=== PATIENT | male | born 1955 | race Caucasian/White ===

== ENCOUNTER → 2023-10-24 08:25 | Outpatient (REF) | payer MEDICARE, OTHER, SELFPAY ==
[2023-10-24 10:05] LABS: PSA, Total - Diagnostic < 0.06 ng/ml (0.0-4.0)
== END ==
LOC: REG 08:25
PROVIDERS: ATTENDING PHYSICIAN Advanced Practice Midwife; FAMILY PHYSICIAN Family Medicine; REFERRING PHYSICIAN Specialist
DX: C61 Malignant neoplasm of prostate (principal)
CPT/HCPCS: 36415; 84153

== ENCOUNTER → 2023-12-13 11:29 | Outpatient (REF) | payer MEDICARE, OTHER, SELFPAY ==
[2023-12-13 12:15] LABS: % Basophils 0.8 % (0-2); % Eosinophils 3.3 % (0-6); % Immature Granulocytes 0.2 % (0-0.5); % Lymphocytes 22.2 % (20.5-51.1); % Monocytes 11.2 % (1.7-9.3); % Neutrophils 62.3 % (42.2-75.2); Absolute Eosinophils 0.2 10^3/uL (0-0.7); Absolute Lymphocytes 1.1 10^3/uL (1.2-3.4); Absolute Monocytes 0.6 10^3/uL (0.1-0.6); Absolute Neutrophils 3.1 10^3/uL (1.4-6.5); Hematocrit 39.2 % (39.0-52.0); Hemoglobin 13.4 g/dL (13.0-18.0); Mean Corp Hgb Conc. 34.2 g/dL (33.0-37.0); Mean Corpuscular Hgb 31.7 pg (27.0-31.0); Mean Corpuscular Volume 92.7 fL (80.0-94.0); Mean Platelet Volume 9.2 fL (7.4-10.4); Nucleated Red Blood Cells % 0 % (-); Platelet Count 145 10^3/uL (130-400); Red Blood Cell Count 4.23 10^6/uL (4.70-6.10); Red Cell Dist. Width 11.9 % (11.5-14.5); White Blood Cell Count 4.9 10^3/uL (4.8-10.8)
[2023-12-13 12:43] LABS: Urine Albumin Negative (Neg - Trace); Urine Bilirubin Negative (Negative); Urine Character Clear (Clear); Urine Color Yellow; Urine Glucose Negative (Negative); Urine Ketone Negative (Negative); Urine Leukocyte Negative (Negative); Urine Nitrite Negative (Negative); Urine Occult Blood Negative (Negative); Urine Specific Gravity 1.005 (<1.030); Urine Urobilinogen Negative (Neg - 1+)
[2023-12-13 12:49] LABS: ALT (SGPT) 28 U/L (0-50); AST (SGOT) 24 U/L (17-59); Albumin 4.3 g/dl (3.5-5.0); Alkaline Phosphatase 81 U/L (38-126); Blood Urea Nitrogen 18 mg/dl (9-20); Calcium 9.2 mg/dl (8.4-10.2); Carbon Dioxide 29 mmol/L (22-30); Chloride 101 mmol/L (98-107); Glucose 95 mg/dl (70-99); HDL Cholesterol 50 mg/dl; LDL Cholesterol, Calculated 82 mg/dl; Potassium 4.7 mmol/L (3.5-5.1); Sodium 139 mmol/L (135-145); Total Cholesterol 149 mg/dl (50-199); Triglyceride 85 mg/dl (10-149); Very Low Density Lipoprotein 17 mg/dl (0-30); eGFR > 60.00
[2023-12-13 13:13] LABS: TSH Reflex To Free T4 4.12 uIU/ml (0.47-4.68)
== END ==
LOC: REG 11:29
PROVIDERS: ATTENDING PHYSICIAN Family Medicine
DX: E04.9 Nontoxic goiter, unspecified (principal); Z13.220 Encounter for screening for lipoid disorders; Z79.899 Other long term (current) drug therapy; R74.8 Abnormal levels of other serum enzymes; Z00.00 Encounter for general adult medical examination without abnormal findings
CPT/HCPCS: 36415; 80053; 80061; 81003; 84443; 85025

== ENCOUNTER → 2024-03-25 15:05 | Outpatient (REF) | payer MEDICARE, OTHER, SELFPAY ==
[2024-03-27 18:38] LABS: PSA, Ultrasensitive 0.04 ng/mL (0.00-4.00)
== END ==
LOC: REG 15:05
PROVIDERS: ATTENDING PHYSICIAN Urology; FAMILY PHYSICIAN Family Medicine; REFERRING PHYSICIAN Specialist
DX: C61 Malignant neoplasm of prostate (principal)
CPT/HCPCS: 36415; 84153

== ENCOUNTER 2024-11-08 12:03 | Emergency (ER) | payer MEDICARE, OTHER, SELFPAY ==
[2024-11-08] VITALS (15 sets, daily range): BP systolic 110–146; BP diastolic 77–92; BMI 24.4
[2024-11-08 12:44] LABS: % Basophils 0.7 % (0-2); % Eosinophils 1.6 % (0-6); % Immature Granulocytes 0.4 % (0-0.5); % Lymphocytes 7.7 % (20.5-51.1); % Monocytes 9.3 % (1.7-9.3); % Neutrophils 80.3 % (42.2-75.2); Absolute Basophils 0.1 10^3/uL (0-0.2); Absolute Eosinophils 0.1 10^3/uL (0-0.7); Absolute Lymphocytes 0.5 10^3/uL (1.2-3.4); Absolute Monocytes 0.6 10^3/uL (0.1-0.6); Absolute Neutrophils 5.5 10^3/uL (1.4-6.5); Hematocrit 39.4 % (39.0-52.0); Hemoglobin 13.1 g/dL (13.0-18.0); Mean Corp Hgb Conc. 33.2 g/dL (33.0-37.0); Mean Corpuscular Hgb 31.4 pg (27.0-31.0); Mean Corpuscular Volume 94.5 fL (80.0-94.0); Mean Platelet Volume 8.9 fL (7.4-10.4); Nucleated Red Blood Cells % 0 % (-); Platelet Count 134 10^3/uL (130-400); Red Blood Cell Count 4.17 10^6/uL (4.70-6.10); White Blood Cell Count 6.9 10^3/uL (4.8-10.8)
[2024-11-08 12:57] LABS: ALT (SGPT) 34 U/L (0-50); AST (SGOT) 41 U/L (17-59); Alkaline Phosphatase 87 U/L (38-126); Blood Urea Nitrogen 21 mg/dl (9-20); Calcium 8.9 mg/dl (8.4-10.2); Carbon Dioxide 28 mmol/L (22-30); Chloride 104 mmol/L (98-107); Estimated Creatinine Clearance 73 ml/min; Glucose 123 mg/dl (70-99); Potassium 4.3 mmol/L (3.5-5.1); Sodium 138 mmol/L (135-145); Total Bilirubin 0.5 mg/dl (0.2-1.3); Total Protein 6.5 g/dl (6.3-8.2); eGFR > 60.00
--- NOTE | 2024-11-08 12:58 | ED.GENMED ---
Addendum entered and electronically signed by Tavo Carbajal DO 11/16/24 09:11:
Procedure note
Patient underwent synchronized cardioversion with the assistance of procedural sedation.
Patient was reevaluated prior to sedation and deemed stable to proceed. No change. Patient has no history of adverse reaction to sedation. Dentition is intact without any dental implants. Gag reflex is intact. Mallampati score of 1. ASA
classification of 2. Time out was performed at 1430. End time was 1445. Patient received 50 mg of propofol at 1430. No complications of procedural sedation. Patient received 1 shock of 200 J with transient return of normal sinus rhythm.
Unfortunately patient reverted back to atrial fibrillation. No further attempts were made at cardioversion.
Original Note:
History of Present Illness
General
Chief Complaint: Heart Rate Problem
Source: patient
Time Seen by Provider: 11/08/24 12:40
History of Present Illness
History of Present Illness:
69-year-old male presents to the emergency room complaining of being in A-fib. He feels dizzy and weak when he stands up. No chest pain or shortness of breath. Patient has a history of A-fib for which she had a ablation. Patient has not been in
A-fib for 4 years so he is not taking Eliquis. When he realized he was in A-fib he took 1 dose today. He also took an extra dose of 25 mg of metoprolol today and an extra 12.5 mg yesterday. Patient's brass polisher is Dr. Abundio Young.
Past History
Past History
ED Past Medical History: Arrthythmia and Other (ASD with repair, atrial flutter with hospitalization in October, Ablation at [facility] in hospital for 6 days DC 03/10/21.)
ED Past Surgical History: Cardiac and Other (Hernia)
Social History
Tobacco: Non-smoker
Alcohol: Occasional
Drug: None
Personal:
Living: with family
Employment: Employed
Family History
Family History: Other (Noncontributory)
Phy Exam
Physical Exam
Physical Exam:
General: Awake, Alert, Oriented X3. No acute distress.
Vitals: unremarkable
Head: Atraumatic
Eyes: Pupils equal, EOMI
Throat: Airway intact, no exudates
Neck: Trachea midline
Lungs: Clear and equal b/l
Heart: Regular rate, no murmurs
Abd: Soft, Nontender, No pulsatile mass
Neuro: Nonfocal
Skin: Warm, dry, no rash
Extremities: pulses equal b/l, no edema
Scores
[id number] Score for Afib Stroke Risk
Age in Years (65=0, 65-74=1, >/=75=2): 65-74
Sex (Female=+1): Male
Congestive Heart Failure History (Yes=+1): No
Hypertension History (Yes=+1): No
Stroke/TIA/Thromboembolism History (Yes=+2): No
Vascular Disease History (Yes=+1): No
Diabetes Mellitus (Yes=+1): No
Score: 1
Anticoagulation Recommendations: Consider anticoagulation (as validated in nonvalvular fib)
Course
Orders/Labs/Results
Orders:
Orders
11/08/24
Electrocardiogram (*1) Stat
Reason for Study: Chest Pain
Comment: DONE
11/08/24 12:04
EKG [Electrocardiogram (*1)] Urgent
Reason for Study: Chest Pain
EKG- Treatment ONCE
11/08/24 12:33
Complete Blood Count/With Diff Urgent
Comprehensive Metabolic Panel Urgent
Troponin I Urgent
11/08/24 14:17
Propofol [Diprivan] 20 ml .ROUTE .STK-MED
11/08/24 14:27
EKG [Electrocardiogram (*1)] Urgent
Reason for Study: Atrial Fibrillation
11/08/24 14:28
EKG- Treatment ONCE
11/08/24 14:32
Propofol [Diprivan] 50 mg IV NOW STA
11/08/24 14:51
Propofol [Diprivan] 50 mg IV NOW STA
Abnormal Lab Results
11/08/24
12:33
RBC 4.17 L 10^6/uL
(4.70-6.10)
MCV 94.5 H fL
(80.0-94.0)
MCH 31.4 H pg
(27.0-31.0)
Absolute Lymphs (auto) 0.5 L 10^3/uL
(1.2-3.4)
Neutrophils % 80.3 H %
(42.2-75.2)
Lymphocytes % 7.7 L %
(20.5-51.1)
BUN 21 H mg/dl
(9-20)
Glucose 123 H mg/dl
(70-99)
11/08/24 12:33
11/08/24 12:33
Vital Signs
Initial and Last Documented VS:
Initial Vital Signs
Temp Pulse Resp BP Pulse Ox
97.8 F 86 16 139/87 100
11/08/24 12:12 11/08/24 12:12 11/08/24 12:12 11/08/24 12:12 11/08/24 12:12
Last Documented Vital Signs
Temp Pulse Resp BP Pulse Ox
97.9 F 107 16 141/92 100
11/08/24 15:11 11/08/24 15:30 11/08/24 15:30 11/08/24 15:15 11/08/24 15:30
MDM/Problems Addressed
Differential Diagnosis Includes:
Paroxysmal atrial fibrillation, SVT, a flutter
MDM/Problems Addressed:
Patient presents in paroxysmal A-fib. He is quite confident that it began yesterday. He is very aware when he is in A-fib. No chest pain or shortness of breath but he does feel dizzy and off balance when he walks when he is in A-fib. Case
discussed with Dr. Shamar Gloria. He feels comfortable with cardioversion as long as the patient is confident he knows when he is in and out of A-fib. Decision made to perform cardioversion. Patient tolerated procedure well. Follow-up cardiology
as an outpatient.
*Pulse Oximetry
Patient hypoxic: no
*EKG
Interpreted by ED Provider?: Yes
Heart Rate: 95
Rate: normal
Rhythm: a-fib
Interval: normal interval
Ischemia: no ischemia
*Guardian Ad Litem Interpretation
Rate: normal
Interpretation: abnormal
Rhythm: a-fib
*Critical Care Note
Total Time (30-74mins, 75-104mins- exclusive of procedures): Not Applicable
ED Attending Note
-
Portions of this chart may have been created with voice recognition software.� Occasional wrong word or��sound alike� substitutions may have occurred due to the inherent limitations of voice recognition software.
Discharge Plan
Departure
Patient Disposition: Home (Routine Discharge)
Date of Disposition: 11/08/24
Time of Disposition: 15:37
Patient with high blood pressure during this ER visit?: No
Condition: Good
Discharge Problem:
Paroxysmal A-fib
Instructions: Atrial Fibrillation (DC), Procedural Sedation, Adult ED
Prescriptions:
New
Eliquis 5 mg tablet
5 mg PO BID Qty: 60 0RF
No Action
loperamide 2 MG capsule
2 - 4 mg PO DAILYPRN PRN (Reason: Diarrhea)
alprazolam 0.25 MG tablet
0.5 mg PO HSPRN PRN (Reason: anxiety )
vitamin B complex 1 TAB tablet
1 tab PO DAILY
apixaban [Eliquis] 5 MG tablet
5 mg PO BID Qty: 60 3RF
finasteride 5 MG tablet
5 mg PO Daily
cholecalciferol (vitamin D3) [Vitamin D3] 1,000 UNIT capsule
2,000 unit PO DAILY
metoprolol succinate 25 MG tablet extended release 24 hr
25 mg PO BID Qty: 60 0RF
gabapentin 300 MG capsule
300 mg PO TID
acetaminophen [Tylenol Extra Strength] 500 MG tablet
1,000 mg PO Q6HPRN PRN (Reason: pain)
hydrocodone-acetaminophen 1 TABLET tablet
1 tab PO Q4HPRN PRN (Reason: severe pain) Qty: 16 0RF
cephalexin 500 mg capsule
500 mg PO Q8H 5 Days Qty: 15 0RF
Referrals:
Conrado Young MD [Active] -
Shamar Gloria MD [Family Provider] -
Activity Restrictions/Additional Instructions:
You should receive a call from the cardiology office tomorrow to schedule an appointment. Call them if you do not hear from the office. You should continue taking Eliquis for at least the next 2 weeks or until cardiology tells you to stop it.
Increase metoprolol to twice a day.
Interventions
Interventions:
*Risk Screen - Suicide Last Done: 11/08/24 12:12
*General Assessment Last Done: 11/08/24 12:24
*Neglect/Abuse Screening Last Done: 11/08/24 12:12
ED- Fall Risk Assessment Last Done: 11/08/24 12:24
*ED COVID-19 Vaccine History Last Done: 11/08/24 12:24
*Nursing Disposition Last Done: 11/08/24 15:56
ED- Cardiac Assessment Last Done: 11/08/24 12:25
ED- Pulmonary Assessment Last Done: 11/08/24 12:25
Discharge Date and Time
Discharge Date/Time: 11/08/24 16:34
Print Language: FIJIAN
[2024-11-08 13:08] LABS: Troponin I < 0.012 ng/ml
[2024-11-08] MEDS: DIPRIVAN 50 MG IV ×2 (14:30→14:32)
== END 2024-11-08 16:34 | disposition home or self-care (01) ==
LOC: EMR 12:03
PROVIDERS: EMERGENCY PHYSICIAN Emergency Medicine; FAMILY PHYSICIAN Family Medicine
DX: I48.0 Paroxysmal atrial fibrillation (principal); Z79.899 Other long term (current) drug therapy
CPT/HCPCS: 92960; 99152; 99285; 80053; 84484; 85025; 93005

== ENCOUNTER 2024-11-20 17:57 | Emergency (ER) | payer MEDICARE, OTHER, SELFPAY ==
[2024-11-20] VITALS (7 sets, daily range): BP systolic 117–159; BP diastolic 62–88
[2024-11-20] MEDS: LOPRESSOR 5 MG IV ×2 (18:23→18:47)
--- NOTE | 2024-11-20 18:26 | ED.GENMED ---
History of Present Illness
General
Chief Complaint: Heart Rate Problem
Time Seen by Provider: 11/20/24 18:07
History of Present Illness
History of Present Illness:
69-year-old male with history of atrial fibrillation on metoprolol and Eliquis coming into the emergency department for palpitations. Patient reports palpitations started earlier today. Reports that he overall felt fine today, took a 3 mile hike.
Patient has a history of A-fib, however had not been on medications for A-fib for several years. He came to the hospital 11/04 for palpitations, was found to be in A-fib, had unsuccessful cardioversion was started on metoprolol and Eliquis. He
reports being compliant with Eliquis since 11/04. Denies any chest pain, does note some neck pain. Denies any difficulty breathing. Denies fever or recent illness. Denies additional acute medical complaints
Past History
Past History
ED Past Medical History: Arrthythmia and Other (ASD with repair, atrial flutter with hospitalization in October, Ablation at [facility] in hospital for 6 days DC 03/10/21.)
ED Past Surgical History: Cardiac and Other (Hernia)
Social History
Tobacco: Non-smoker
Alcohol: Occasional
Drug: None
Personal:
Living: with family
Employment: Employed
Family History
Family History: Other (Noncontributory)
Phy Exam
Physical Exam
Physical Exam:
General: Well-appearing, no clinical signs of dehydration, nontoxic and in no acute distress
HEENT: protecting airway
Neck: appears supple
CV: Irregular irregular rhythm, tachycardic, no evidence of cyanosis
Resp: No accessory muscle use, no increased work of breathing, lungs clear to auscultation bilaterally
Abd: no distension
Extremities: No deformities, no swelling
Neuro: alert, no focal neurologic deficit
: deferred
Rectal: deferred
Psych: Normal affect
Skin: Intact
Course
Orders/Labs/Results
Orders:
Orders
11/20/24 17:58
Electrocardiogram (*1) Urgent
Reason for Study: Tachycardia
EKG- Treatment ONCE
11/20/24 18:13
Metoprolol [Lopressor] 5 mg .ROUTE .STK-MED ONE
Metoprolol [Lopressor] 5 mg IV NOW STA
11/20/24 18:18
Complete Blood Count/With Diff Urgent
Comprehensive Metabolic Panel Urgent
Magnesium Urgent
TSH Urgent
11/20/24 18:31
ECG [Electrocardiogram (*1)] Urgent
Reason for Study: Tachycardia
EKG- Treatment ONCE
11/20/24 18:33
Metoprolol [Lopressor] 50 mg PO NOW STA
11/20/24 18:45
Metoprolol [Lopressor] 5 mg IV NOW STA
11/20/24 19:05
Propofol [Diprivan] 20 ml .ROUTE .STK-MED
11/20/24 19:13
Electrocardiogram (*1) Urgent
Reason for Study: Other
Other Reason for Exam: conversion from afib to nsr
11/20/24 19:14
EKG- Treatment ONCE
Abnormal Lab Results
11/20/24
18:18
RBC 4.58 L 10^6/uL
(4.70-6.10)
MCV 95.0 H fL
(80.0-94.0)
MCH 31.2 H pg
(27.0-31.0)
MCHC 32.9 L g/dL
(33.0-37.0)
Absolute Monos (auto) 0.7 H 10^3/uL
(0.1-0.6)
Monocytes % 11.2 H %
(1.7-9.3)
BUN 23 H mg/dl
(9-20)
Glucose 207 H mg/dl
(70-99)
ALT 57 H U/L
(0-50)
TSH 4.77 H uIU/ml
(0.47-4.68)
11/20/24 18:18
11/20/24 18:18
Vital Signs
Initial and Last Documented VS:
Initial Vital Signs
Pulse Resp Pulse Ox
211 20 100
11/20/24 18:10 11/20/24 18:10 11/20/24 18:10
Last Documented Vital Signs
Pulse Resp BP Pulse Ox
73 20 117/64 100
11/20/24 19:45 11/20/24 19:45 11/20/24 19:45 11/20/24 19:15
MDM/Problems Addressed
MDM/Problems Addressed:
69-year-old male with history of A-fib presenting to the emergency department for elevated heart rate. Vital signs on arrival significant for tachycardia.
On exam, patient is resting comfortably, no acute distress. Patient is markedly tachycardic, heart rate greater than 200. Otherwise hemodynamically stable. Suspect A-fib versus a flutter with RVR. Given elevated rate, will start on IV metoprolol
and reassess heart rate. Patient reports compliance with Eliquis. Will discuss with cardiology regarding recommendations for cardioversion.
18:35 - In discussion with cardiology, notes that cardioversion can be considered if patient is uncomfortable or persistently high heart rate. Heart rate has come down to low 100s on IV metoprolol. Patient without any comfort. Will continue to
monitor and hold cardioversion at this time. Will administer oral dose of metoprolol
19:10 -patient's heart rate went back up, given additional dose of IV metoprolol. Heart rate was in the steady 120-130 range. However while consenting for cardioversion, self converted. Will plan to increase Toprol to 50 mg twice daily with plan
for outpatient cardiology follow-up.
*EKG
Interpreted by ED Provider?: Yes
EKG Intrepretation Date: 11/20/24
EKG Intrepretation Time: 18:28
Interpretation: abnormal
Comparison EKG: changes noted
Heart Rate: 214
Rate: tachycardiac
Rhythm: a-fib
[place]: normal axis
QRS Pattern: wide non-specific
Ischemia: non-specific ST changes
*Critical Care Note
Total Time (30-74mins, 75-104mins- exclusive of procedures): Not Applicable
ED Attending Note
-
Portions of this chart may have been created with voice recognition software.� Occasional wrong word or��sound alike� substitutions may have occurred due to the inherent limitations of voice recognition software.
Discharge Plan
Departure
Patient Disposition: Home (Routine Discharge)
Date of Disposition: 11/20/24
Time of Disposition: 19:38
Patient with high blood pressure during this ER visit?: No
Condition: Good
Discharge Problem:
Atrial flutter
Instructions: Atrial Fibrillation (DC), Palpitations (DC)
Prescriptions:
New
metoprolol succinate 50 mg tablet extended release 24 hr
50 mg PO BID Qty: 60 0RF
No Action
vitamin B complex 1 TAB tablet
1 tab PO DAILY
Eliquis 5 MG tablet
5 mg PO BID Qty: 60 3RF
cholecalciferol (vitamin D3) [Vitamin D3] 1,000 UNIT capsule
1,000 unit PO DAILY
alpha lipoic acid 100 mg Capsule
100 mg PO HS
ashwagandha extract 500 mg Capsule
500 mg PO BID
Total Restore
1 cap PO BID
metoprolol succinate 25 MG tablet extended release 24 hr
12.5 mg PO BID
Referrals:
Conrado Shaikh DO [Family Provider] -
Conrado Young MD [Active] -
Activity Restrictions/Additional Instructions:
You were seen in the emergency department for elevated heart rate
You were found to have atrial fibrillation with a rapid ventricular response. Your heart rate improved with metoprolol, and you converted to a sinus rhythm. Please follow-up with your charging operator. Your metoprolol was increased to 50 mg twice a
day. If you are feeling dizzy or lightheaded on the increased dose, you can drop back down to 25 mg twice daily
Please follow-up closely with your primary care physician.
Return to the emergency department for any worsening of your symptoms, or any development of chest pain, difficulty breathing, abdominal pain with persistent vomiting and inability to tolerate food or liquid by mouth (concern for dehydration),
weakness, headache or confusion, fever greater than 100.4, or any additional symptoms that are concerning to you.
Thank you for choosing [facility].
Interventions
Interventions:
*Risk Screen - Suicide Last Done: 11/20/24 18:29
*General Assessment Last Done: 11/20/24 18:29
*Neglect/Abuse Screening Last Done: 11/20/24 18:29
ED- Fall Risk Assessment Last Done: 11/20/24 18:29
*Nursing Disposition Last Done: 11/20/24 19:51
ED- Cardiac Assessment Last Done: 11/20/24 18:29
ED- Pulmonary Assessment Last Done: 11/20/24 18:29
Discharge Date and Time
Discharge Date/Time: 11/20/24 19:51
Print Language: GREEK
[2024-11-20 18:28] LABS: % Basophils 0.7 % (0-2); % Eosinophils 2.8 % (0-6); % Immature Granulocytes 0.3 % (0-0.5); % Monocytes 11.2 % (1.7-9.3); Absolute Eosinophils 0.2 10^3/uL (0-0.7); Absolute Lymphocytes 1.6 10^3/uL (1.2-3.4); Absolute Monocytes 0.7 10^3/uL (0.1-0.6); Absolute Neutrophils 3.4 10^3/uL (1.4-6.5); Hematocrit 43.5 % (39.0-52.0); Hemoglobin 14.3 g/dL (13.0-18.0); Mean Corp Hgb Conc. 32.9 g/dL (33.0-37.0); Mean Corpuscular Hgb 31.2 pg (27.0-31.0); Nucleated Red Blood Cells % 0 % (-); Platelet Count 164 10^3/uL (130-400); Red Blood Cell Count 4.58 10^6/uL (4.70-6.10); Red Cell Dist. Width 12.1 % (11.5-14.5); White Blood Cell Count 5.8 10^3/uL (4.8-10.8)
[2024-11-20 18:42] LABS: ALT (SGPT) 57 U/L (0-50); AST (SGOT) 51 U/L (17-59); Albumin 4.4 g/dl (3.5-5.0); Alkaline Phosphatase 111 U/L (38-126); Blood Urea Nitrogen 23 mg/dl (9-20); Carbon Dioxide 27 mmol/L (22-30); Chloride 101 mmol/L (98-107); Glucose 207 mg/dl (70-99); Potassium 3.8 mmol/L (3.5-5.1); Sodium 138 mmol/L (135-145); Total Bilirubin 0.5 mg/dl (0.2-1.3); eGFR > 60.00
[2024-11-20 19:24] LABS: TSH 4.77 uIU/ml (0.47-4.68)
== END 2024-11-20 19:51 | disposition home or self-care (01) ==
LOC: EMR 17:57
PROVIDERS: EMERGENCY PHYSICIAN Student in an Organized Health Care Education/Training Program; FAMILY PHYSICIAN Family Medicine; REFERRING PHYSICIAN Internal Medicine Cardiovascular Disease
DX: I48.92 Unspecified atrial flutter (principal); Z79.01 Long term (current) use of anticoagulants
CPT/HCPCS: 99284; 96374; 80053; 83735; 84443; 85025; 93005

== ENCOUNTER → 2024-11-24 13:45 | Outpatient (REF) | payer MEDICARE, OTHER, SELFPAY | LOC: HWRCS 13:45 | PROVIDERS: ATTENDING PHYSICIAN Physician Assistant; FAMILY PHYSICIAN Family Medicine | DX: I48.0 Paroxysmal atrial fibrillation (principal); I47.19 Other supraventricular tachycardia; Z87.74 Personal history of (corrected) congenital malformations of heart and circulatory system; R06.02 Shortness of breath | CPT/HCPCS: 93306 ==

== ENCOUNTER 2024-12-20 11:55 | Inpatient (IN) | payer MEDICARE, OTHER, SELFPAY ==
[2024-12-20] VITALS (58 sets, daily range): BP systolic 66–153; BP diastolic 35–91; BMI 24.9
[2024-12-20] MEDS: LOPRESSOR 5 MG IV (05:48)
[2024-12-20 06:11] LABS: % Basophils 0.5 % (0-2); % Eosinophils 2.7 % (0-6); % Immature Granulocytes 0.3 % (0-0.5); % Lymphocytes 27.8 % (20.5-51.1); % Monocytes 8.8 % (1.7-9.3); % Neutrophils 59.9 % (42.2-75.2); Absolute Eosinophils 0.2 10^3/uL (0-0.7); Absolute Lymphocytes 1.7 10^3/uL (1.2-3.4); Absolute Monocytes 0.6 10^3/uL (0.1-0.6); Absolute Neutrophils 3.7 10^3/uL (1.4-6.5); Hematocrit 39.3 % (39.0-52.0); Mean Corp Hgb Conc. 33.1 g/dL (33.0-37.0); Mean Corpuscular Volume 96.8 fL (80.0-94.0); Mean Platelet Volume 9.4 fL (7.4-10.4); Nucleated Red Blood Cells % 0 % (-); Platelet Count 154 10^3/uL (130-400); Red Blood Cell Count 4.06 10^6/uL (4.70-6.10); Red Cell Dist. Width 11.9 % (11.5-14.5); White Blood Cell Count 6.3 10^3/uL (4.8-10.8)
[2024-12-20 06:15] LABS: Blood Urea Nitrogen 25 mg/dl (9-20); Carbon Dioxide 25 mmol/L (22-30); Chloride 108 mmol/L (98-107); Glucose 160 mg/dl (70-99); Sodium 140 mmol/L (135-145); eGFR > 60.00
[2024-12-20 07:03] LABS: TSH 4.83 uIU/ml (0.47-4.68)
--- NOTE | 2024-12-20 07:15 | ED.GENMED ---
History of Present Illness
<Tavo Gonzales DO - Last Filed: 12/20/24 07:49>
General
Chief Complaint: Cardiac Symptoms
Source: patient and family
Exam Limitations: clinical condition
Time Seen by Provider: 12/20/24 05:59
Nursing documentation reviewed up to this point in time: agreed with
History of Present Illness
History of Present Illness:
69-year-old male presents with rapid heart rate. He took his pulse at home it was 220. He states that this came on spontaneously. Patient has been having issues with his atrial fibrillation. He is on Eliquis and has not missed a dose. He is
accompanied by family.
Past History
<Tavo Gonzales DO - Last Filed: 12/20/24 07:49>
Past History
ED Past Medical History: Arrthythmia and Other (ASD with repair, atrial flutter with hospitalization in October, Ablation at [facility] in hospital for 6 days DC 03/10/21.)
ED Past Surgical History: Cardiac and Other (Hernia)
Social History
Tobacco: Non-smoker
Alcohol: Occasional
Drug: None
Personal:
Living: with family
Employment: Employed
Family History
Family History: Other (Noncontributory)
Review of Systems
<Tavo Gonzales DO - Last Filed: 12/20/24 07:49>
Review of Systems
Allergies reviewed?: Yes
All Other Systems: ROS reviewed and negative except as documented in HPI and ROS
Cardiac: Reports diaphoresis and palpitations
Phy Exam
<Tavo Gonzales DO - Last Filed: 12/20/24 07:49>
General Physical Exam
General Presentation: moderate distress
General age: appears stated age
General Skin: warm and dry
General Habitus: normal
General Mental: alert
General Hydration: appears well hydrated
ENT Exam
ENT Exam: EOMI, pharynx normal, neck supple and normocephalic
Eye Exam
Eye Exam: PERRL, cornea clear and conjunctiva normal
Cardiovascular Exam
Cardiovascular Exam: irregularly irregular and tachycardia
Pulmonary Exam
Pulmonary Exam: lungs clear, no respiratory distress, no rales, no crackles, no rhonchi, no stridor, no wheezing and no cough
Gastrointestinal Exam
Gastrointestinal Exam: normal bowel sounds, non tender, soft, no organomegaly, no pulsatile mass and non distended
Neurological Exam
Neurological Exam: alert, oriented x3, no motor deficits and speech normal
Musculoskeletal Exam
Musculoskeletal Exam: full ROM and no edema
Skin Exam
Skin Exam: normal color, warm/dry, no rash and no petechia
Psychiatric Exam
Psychiatric Exam: normal mood/affect
Course
<Tavo Gonzales, DO - Last Filed: 12/20/24 07:49>
Orders/Labs/Results
Orders:
Orders
12/20/24 05:37
ECG [Electrocardiogram (*1)] Urgent
Reason for Study: Bradycardia / Tachycardia
EKG- Treatment ONCE
12/20/24 05:46
Metoprolol [Lopressor] 5 mg IV NOW STA
12/20/24 05:47
Metoprolol [Lopressor] 5 mg .ROUTE .STK-MED ONE
12/20/24 05:50
Basic Metabolic Panel Urgent
Complete Blood Count/With Diff Urgent
TSH Urgent
Comment: ADDED
12/20/24 05:53
Add On- LAB Urgent
Tests Added?: TSH, Mag
12/20/24 05:54
Propofol [Diprivan] 20 ml .ROUTE .STK-MED
12/20/24 06:16
EKG [Electrocardiogram (*1)] Urgent
Reason for Study: Atrial Fibrillation
12/20/24 06:17
EKG- Treatment ONCE
12/20/24 06:39
Magnesium Routine
Comment: ORIGINAL SAMPLE WAS HEMOLYZED, MAG CANNOT BE ADDED
Potassium Routine
Comment: ADD ON
12/20/24 06:48
Add On- LAB Urgent
Tests Added?: potassium
12/20/24 08:56
EKG [Electrocardiogram (*1)] Urgent
Reason for Study: Chest Pain
12/20/24 08:57
EKG- Treatment ONCE
12/20/24 08:59
Electrocardiogram (*1) Urgent
EKG- Treatment ONCE
12/20/24 10:40
Metoprolol [Lopressor] 5 mg .ROUTE .STK-MED ONE
12/20/24 10:42
NORepinephrine 4 MG/250 ML [Levophed] 4 mg in 250 ml .ROUTE .STK-MED
Abnormal Lab Results
12/20/24
05:50
RBC 4.06 L 10^6/uL
(4.70-6.10)
MCV 96.8 H fL
(80.0-94.0)
MCH 32.0 H pg
(27.0-31.0)
Chloride 108 H mmol/L
(98-107)
BUN 25 H mg/dl
(9-20)
Glucose 160 H mg/dl
(70-99)
TSH 4.83 H uIU/ml
(0.47-4.68)
12/20/24 05:50
12/20/24 06:39
Vital Signs
Initial and Last Documented VS:
Initial Vital Signs
Pulse Resp BP
173 25 116/77
12/20/24 05:40 12/20/24 05:40 12/20/24 05:40
Last Documented Vital Signs
Temp Pulse Resp BP Pulse Ox
97.2 F 103 17 116/71 98
12/20/24 06:00 12/20/24 09:45 12/20/24 09:45 12/20/24 09:45 12/20/24 09:45
<Paresh Hatch, DO - Last Filed: 12/20/24 10:53>
Orders/Labs/Results
Orders:
Orders
12/20/24 05:37
ECG [Electrocardiogram (*1)] Urgent
Reason for Study: Bradycardia / Tachycardia
EKG- Treatment ONCE
12/20/24 05:46
Metoprolol [Lopressor] 5 mg IV NOW STA
12/20/24 05:47
Metoprolol [Lopressor] 5 mg .ROUTE .STK-MED ONE
12/20/24 05:50
Basic Metabolic Panel Urgent
Complete Blood Count/With Diff Urgent
TSH Urgent
Comment: ADDED
12/20/24 05:53
Add On- LAB Urgent
Tests Added?: TSH, Mag
12/20/24 05:54
Propofol [Diprivan] 20 ml .ROUTE .STK-MED
12/20/24 06:16
EKG [Electrocardiogram (*1)] Urgent
Reason for Study: Atrial Fibrillation
12/20/24 06:17
EKG- Treatment ONCE
12/20/24 06:39
Magnesium Routine
Comment: ORIGINAL SAMPLE WAS HEMOLYZED, MAG CANNOT BE ADDED
Potassium Routine
Comment: ADD ON
12/20/24 06:48
Add On- LAB Urgent
Tests Added?: potassium
12/20/24 08:56
EKG [Electrocardiogram (*1)] Urgent
Reason for Study: Chest Pain
12/20/24 08:57
EKG- Treatment ONCE
12/20/24 08:59
Electrocardiogram (*1) Urgent
EKG- Treatment ONCE
12/20/24 10:40
Metoprolol [Lopressor] 5 mg .ROUTE .STK-MED ONE
12/20/24 10:42
NORepinephrine 4 MG/250 ML [Levophed] 4 mg in 250 ml .ROUTE .STK-MED
Abnormal Lab Results
12/20/24
05:50
RBC 4.06 L 10^6/uL
(4.70-6.10)
MCV 96.8 H fL
(80.0-94.0)
MCH 32.0 H pg
(27.0-31.0)
Chloride 108 H mmol/L
(98-107)
BUN 25 H mg/dl
(9-20)
Glucose 160 H mg/dl
(70-99)
TSH 4.83 H uIU/ml
(0.47-4.68)
12/20/24 05:50
12/20/24 06:39
Vital Signs
Initial and Last Documented VS:
Initial Vital Signs
Pulse Resp BP
173 25 116/77
12/20/24 05:40 12/20/24 05:40 12/20/24 05:40
Last Documented Vital Signs
Temp Pulse Resp BP Pulse Ox
97.2 F 103 17 116/71 98
12/20/24 06:00 12/20/24 09:45 12/20/24 09:45 12/20/24 09:45 12/20/24 09:45
Procedures
<Tavo Gonzales, DO - Last Filed: 12/20/24 07:49>
Moderate Sedation
Moderate Sedation Start Time(when first medication is given): 06:00
Moderate Sedation Procedure End Time: 06:15
Cardioversion
Indication:: Afib
Performed by:: Myself
Energy Used: 200 joules
Number of attempts: 2
Successful?: Yes (Patient is rate controlled but still in A-fib)
ASA Risk Score: Class II
Any reaction or bad outcome to prior sedation/anesthesia?: No history of a reaction
Sedation level to be attained: minimal
Chart and allergies reviewed: Yes
Patient reassessed prior to sedation: Yes
Time out completed at (validating right patient & procedure): 06:00
History of difficult intubation: No
Airway free of obstruction: Yes
Patient has a gag reflex: Yes
Patient is able to open mouth: Yes
Patient has no dentures: Yes
Patient has no loose teeth: Yes
Medication administered by Provider during Moderate Sedation: IV Propofol (mg)
Total dose administered: 50
Time drug administered: 06:00
Start Time: 06:00
Stop Time: 06:15
<Tavo Gonzales, DO - Last Filed: 12/20/24 07:49>
*Critical Care Note
Total Time (30-74mins, 75-104mins- exclusive of procedures): 32 (Critical care statement: A total of 32 minutes of critical care time was provided for this patient. This time is separate from time utilized to perform the aforementioned documented
procedures. Aggregate critical care time includes only time during which I was engaged in work directl)
<Paresh Hatch, DO - Last Filed: 12/20/24 10:53>
*Critical Care Note
Total Time (30-74mins, 75-104mins- exclusive of procedures): 65 (Critical care statement: A total of 32 minutes of critical care time was provided for this patient. This time is separate from time utilized to perform the aforementioned documented
procedures. Aggregate critical care time includes only time during which I was engaged in work directl)
comment:
Critical care statement: A total of 65 minutes of critical care time was provided for this patient. This includes management of unstable vital signs, evaluation of the patient at bedside, reviewing the patient's pertinent medical records, discussion
with consultants, review of old EKGs and review of pertinent medical records. This time with separate from time utilized to perform the aforementioned documented procedures
<Tavo Gonzales, DO - Last Filed: 12/20/24 07:49>
Update Note
Update Note:
Initial EKG showed a rapid flutter versus SVT rate of 202. Patient was unstable given Lopressor.
After cardioversion, patient was A-fib with rapid ventricular response rate of 109
<Paresh Hatch, DO - Last Filed: 12/20/24 10:53>
Update Note
Update Note:
Initial EKG showed a rapid flutter versus SVT rate of 202. Patient was unstable given Lopressor.
After cardioversion, patient was A-fib with rapid ventricular response rate of 109
Update at 9 AM. Patient was about to be discharged and heart rate went up to 202, and rapid flutter versus SVT. [place] text message sent to Dr. Toro, asking him to see patient. Patient placed again on pads.
Update at 9:55 am. [place] text sent to hospitalist after seen by Dr. Toro, who requested admit to hospitalist.
Update at 10:05 AM, [place] text received from Dr. Camara he states his ETA is 1 to 2 hours for admission.
Update at 10:36 AM, patient in rapid atrial fibrillation heart rate in 200s, blood pressure 90s/70s. Discussed with Dr. Toro, recommended Lopressor 2.5 mg. Lopressor given, blood pressure improved to 125/82, heart rate improved to 117.
ED Attending Note
<Tavo Gonzales, DO - Last Filed: 12/20/24 07:49>
-
Portions of this chart may have been created with voice recognition software.� Occasional wrong word or��sound alike� substitutions may have occurred due to the inherent limitations of voice recognition software.
Discharge Plan
Departure
Patient Disposition: Admit
Date of Disposition: 12/20/24
Time of Disposition: 09:54
Admit to: IVU
Presentation/result/management discussed w/ accepting MD/DO: Hospitalist
Patient with high blood pressure during this ER visit?: No
Condition: Good
Discharge Problem:
Atrial flutter, Atrial fibrillation status post cardioversion
Instructions: Cardioversion - Discharge instructions, MODERATE SEDATION ADULT
Prescriptions:
No Action
vitamin B complex 1 TAB tablet
1 tab PO DAILY
Eliquis 5 MG tablet
5 mg PO BID Qty: 60 3RF
cholecalciferol (vitamin D3) [Vitamin D3] 1,000 UNIT capsule
1,000 unit PO DAILY
alpha lipoic acid 100 mg Capsule
100 mg PO HS
ashwagandha extract 500 mg Capsule
500 mg PO BID
Total Restore
1 cap PO BID
metoprolol succinate 25 MG tablet extended release 24 hr
12.5 mg PO BID
metoprolol succinate 50 mg tablet extended release 24 hr
50 mg PO BID Qty: 60 0RF
Referrals:
Ayush Toro DO [Active] -
Joaquin Holm DO [Family Provider] -
Activity Restrictions/Additional Instructions:
It was a pleasure meeting you and taking part in your care. We hope for your continued healing and wellness.
Please read discharge instructions in their entirety. However, they are for general education and may not describe your exact diagnosis at discharge. Information on your ER visit and medical conditions were discussed with you along with appropriate
follow up information...
If indicated, please take your medications as instructed and indicated on discharge paperwork.
Please schedule a follow up appointment as directed. Call to schedule an appointment
Please return to the emergency department with ANY change in, persisting, or worsening of symptoms. If any of your symptoms do not improve, or persist, or become more severe within 6-12 hours, please return to the emergency department for further
care.
Please return to the emergency department if you develop a headache, neck pain/stiffness, fever greater than 100.4F, chest pain, shortness of breath, persistent nausea, vomiting, slurred speech, difficulty walking, numbness/tingling, weakness, signs
of infection or any other symptoms that are worrisome to you.
If you have any questions or concerns please do not hesitate to call the Hospital at or E-mail me directly at [email or web address]
Interventions
Interventions:
*Risk Screen - Suicide Last Done: 12/20/24 05:41
*General Assessment Last Done: 12/20/24 06:20
*Neglect/Abuse Screening Last Done: 12/20/24 05:41
*ED- Fall Risk Assessment Last Done: 12/20/24 06:20
*ED COVID-19 Vaccine History Last Done: 12/20/24 06:20
ED- Pulmonary Assessment Last Done: 12/20/24 05:50
ED- Cardiac Assessment Last Done: 12/20/24 05:50
Discharge Date and Time
Print Language: KYRGYZ
[2024-12-20 07:17] LABS: Magnesium 1.8 mg/dl (1.6-2.3); Potassium 4.3 mmol/L (3.5-5.1)
--- NOTE | 2024-12-20 09:41 | CON.CAR ---
Consultation
Consultation Request
Date/Time Consultation Requested: December 20, 2024
Date/Time Consultation Performed: December 20, 2024
Requesting Provider: Dr. Hatch
Performing Provider: Dr. Toro
Reason for Consultation: SVT/atrial fibrillation
Medical History
-
Chief Complaint: Palpitations
History of Present Illness:
Yogi is a pleasant 69-year-old male with past medical history significant for Grzegorz patch repair of ASD in [facility] and lung [place], paroxysmal SVT/AT status post ablation in 2018 [facility], ablation [facility] 2018, ablation [facility] with
Jose Angel 2020 for recurrent symptomatic atrial tachycardia following being intolerant to sotalol after sotalol load in January 2021. He was recently seen in the office by Ana ALDANA November 2024 following an ER visit in October 2024 for recurrent atrial
fibrillation. He spontaneously converted to sinus rhythm at that time. He remains on anticoagulation with Eliquis. His Toprol was recently reduced to 25 mg twice a day after he was seen for second opinion at [facility] with
Jose Angel. He states he was told if he had more recurrence that he would eventually need recurrent ablation.
This morning he awoke from sleep with heart rate in the 200s. He noted it on his Apple Watch. He came to the emergency room and was found to be in SVT 200. He was given IV Lopressor. He was hypotensive and cardioverted in the emergency room to
atrial fibrillation. After observation, he was preparing to leave and had another recurrence of SVT 200s. He spontaneously converted to sinus with short runs of atrial tach. Cardiology is consulted for further evaluation. He denies chest pain or
shortness of breath.
Past medical history:
Atrial flutter/atrial fibrillation, history of ablations in 2018, 2018 and 2020 at [facility].
status post Grzegorz patch repair of ASD in 1972,
Klippel-Feil syndrome
Prostate cancer status post prostatectomy 2022
Solitary kidney
Left orchiectomy
Hernia repair 2006
Prior TURP
Social History
Tobacco: Non-Smoker
Alcohol: Occasional
Drug: None
Personal: (His is Erendira Most a patient of [facility])
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
Family History
Family History: Reviewed & Not Pertinent (No premature CAD in the family.)
Allergies / Home Medications
Allergy/AdvReac Type Severity Reaction Status Date / Time
cat dander Allergy DIFFICULTY Verified 12/20/24 05:45
BREATHING
erythromycin base Allergy Rash Verified 12/20/24 05:45
mold Allergy DIFFICULTY Verified 12/20/24 05:45
BREATHING
�Medication �Instructions �Recorded �Confirmed �Type
vitamin B complex 1 tab PO DAILY Supplement 09/21/16 11/20/24 History
apixaban 5 mg tablet (Eliquis) 5 mg PO BID #60 tabs 01/04/21 11/20/24 Rx
cholecalciferol (vitamin D3) 25 1,000 unit PO DAILY Supplement 02/14/21 11/20/24 History
mcg (1,000 unit) capsule (Vitamin
D3)
Total Restore 1 cap PO BID 11/20/24 11/20/24 History
alpha lipoic acid 100 mg capsule 100 mg PO HS 11/20/24 11/20/24 History
ashwagandha extract 500 mg capsule 500 mg PO BID 11/20/24 11/20/24 History
metoprolol succinate 25 mg 12.5 mg PO BID 11/20/24 11/20/24 History
tablet,extended release 24 hr
metoprolol succinate 50 mg 50 mg PO BID #60 tabs 11/20/24 Rx
tablet,extended release 24 hr
Review of Systems
-
History Source: Patient
All other systems: Negative unless noted
Cardiac: Palpitations
Physical Exam
Vital Signs
Temp Pulse Resp BP Pulse Ox
97.2 F 103 19 121/77 99
12/20/24 06:00 12/20/24 08:30 12/20/24 08:30 12/20/24 08:30 12/20/24 08:30
Physical examination:
General: No acute distress, AAOX3
Neck: Negative JVD
Heart: Irregular irregular,, Negative S3 positive S1/S2, Negative S4, No murmur
Lungs: CTA b/l, negative wheezes/rales/rhonchi
Abd: Positive BS, NT/ND, neg rebound/rigidity/guarding
Ext: Negative cyanosis/clubbing/edema
Neuro: nonfocal
Lab Results
12/20/24 05:50
12/20/24 06:39
Impression / Plan
-
.
Primary front desk coordinator: Dr. Conrado Young
Impression:
SVT 200s, with hx of recurrent atrial flutter/atrial fibrillation
History of ablations in 2017, 2018 and 2020 at [facility].
status post Grzegorz patch repair of ASD in 1972,
Elevated TSH
Solitary kidney
Klippel-Feil syndrome
Prostate cancer status post prostatectomy 2022
Left orchiectomy
Hernia repair 2006
Prior TURP
Intolerance to Sotalol
Echo November 2024: ASD repair without evidence of shunt, EF 50 to 55%, mild MR, dilated coronary sinus with known persistent left superior vena cava, study similar to February 2021.
Plan:
He comes with recurrent SVT. He has a history of recurrent atrial flutter/fibrillation.
Continue anticoagulation with Eliquis
Discussed with electrophysiology, patient to be admitted to IVU for Tikosyn loading.
Start Tikosyn 250 mcg BID.
EKG 30 min after each dose
Monitor QTc
He will need to stay in hospital for minimum of 5 doses
Recent echo reviewed, no need to repeat at this time.
Evaluation of TSH, TFTs per primary service.
Monitor renal function in the setting of solitary kidney and Tikosyn initiation.
Discussed with family members at bedside including his Erendira Fernandez.
Discussed with the emergency room.
Data Reviewed
-
EKG: Tracing Personally Visualized and interpreted
Labs: Labs Reviewed by me
Old Records: Reviewed
[2024-12-20] MEDS: LOPRESSOR 2.5 MG IV ×3 (10:45→15:03)
--- NOTE | 2024-12-20 11:18 | HPS.HSE ---
Family Physician
-
Family Physician: Joaquin Holm
Chief Complaint
-
Tachycardia
History of Present Illness
69 y/o M with PMHx:
Grzegorz patch repair of ASD in [facility] heart and lung [place], paroxysmal SVT/AT status post ablation in 2017 [facility], ablation [facility] 2018, ablation [facility] with Dr. Walter 2020 for recurrent symptomatic atrial tachycardia following being
intolerant to sotalol after sotalol load in January 2021.
Atrial fibrillation
who presents with CC tachycardia. The patient was awoken from sleep around 3 AM due to nausea and lightheadedness. He was aware of his tachycardia. He complained of neck and bilateral arm pain. Denies any chest pain or shortness of breath.
Patient was found to be in SVT in the ER. Reports compliance with his medications.
Medical History
Past Medical History
Past Medical History: Reports Other (as per HPI)
Past Surgical History: Reports Other (N/A)
Social History
Tobacco: Non-smoker
Alcohol: Occasional
Drug: None
Family History
Family History: Not pertinent
Allergies / Home Medications
Allergies reflects when Allergies were last updated in [facility].
Home Medications with original date entered in [facility]
Allergy/Medication List:
Allergies
Allergy/AdvReac Type Severity Reaction Status Date / Time
cat dander Allergy DIFFICULTY Verified 12/20/24 05:45
BREATHING
erythromycin base Allergy Rash Verified 12/20/24 05:45
mold Allergy DIFFICULTY Verified 12/20/24 05:45
BREATHING
Home Medications
vitamin B complex 1 tab PO DAILY Supplement 09/21/16
apixaban 5 mg tablet (Eliquis) 5 mg PO BID #60 tabs 01/04/21
cholecalciferol (vitamin D3) 25 mcg (1,000 unit) capsule (Vitamin D3) 1,000 unit PO DAILY Supplement 02/14/21
Total Restore 1 cap PO BID 11/20/24
alpha lipoic acid 100 mg capsule 100 mg PO HS 11/20/24
ashwagandha extract 500 mg capsule 500 mg PO BID 11/20/24
metoprolol succinate 25 mg tablet,extended release 24 hr 12.5 mg PO BID 11/20/24
metoprolol succinate 50 mg tablet,extended release 24 hr 50 mg PO BID #60 tabs 11/20/24
Review of Systems
-
History Source: Patient
A 12 point ROS was completed and negative except as noted: Yes
Physical Exam
Vital Signs
Vital Signs
Temp Pulse Resp BP Pulse Ox
97.2 F 154 23 97/80 100
12/20/24 06:00 12/20/24 10:47 12/20/24 10:47 12/20/24 10:47 12/20/24 10:47
Physical Exam
General: Other (.)
Laboratory Results
-
12/20/24 05:50
12/20/24 06:39
Laboratory Results
Total Bilirubin Cancelled 12/20/24 05:50
AST Cancelled 12/20/24 05:50
ALT Cancelled 12/20/24 05:50
Alkaline Phosphatase Cancelled 12/20/24 05:50
Impression/Plan
-
Gen: NAD, AAOx3.
Eyes: EOMI, PERRLA, no scleral icterus.
Neck: supple.
CV: tachy, irreg/irreg, +S1/S2, no m/r/g.
Resp: CTAB, no rales, wheezes, or rhonchi.
Abd: +BS, soft, NT, ND
Skin: No rashes.
Neuro: CN 2-12 intact, non-focal.
Psych: Normal mood and affect.
Echo 11/24/24:
1. Status post ASD patch repair without evidence of shunt
2. Normal left ventricular size and wall thickness with paradoxical septal motion. Normal contractility of other LV segments, EF 50-55%
3. Mildly thickened mitral leaflets with mild mitral regurgitation and normal left atrium
4. Normal right heart with normal pulmonary artery systolic pressure
5. Dilated coronary sinus with known persistent left superior vena cava
SVT/AT/afib with RVR:
-Pertinent history includes Grzegorz patch repair of ASD in 1972 [facility] and lung [place], paroxysmal SVT/AT status post ablation in [facility], [facility], ablation [facility] with Dr. Walter 2020 for recurrent symptomatic atrial
tachycardia following being intolerant to sotalol after sotalol load in January 2021.
-initial ECG (read by me): SVT @ 202, RBBB, QRS 162ms, repolarization abnormalities I, II, V2-V6
-Patient cardioverted in the ER and was given IV Lopressor
-case discussed with Dr. Toro. Plan to initiate Tikosyn.
-cont Eliquis
FULL/Eliquis
--- NOTE | 2024-12-20 11:54 | W.CARD.TIKOS ---
Initiate Tikosyn
-
I verify that the patient has not taken any verapamil (Isoptin/Calan), ketoconazole (Nizoral), cimetidine (Tagamet), trimethoprim (Trimpex), trimethoprim/sulfamethoxazole (Bactrim), megesterol (Megace), prochlorperazine (Compazine),
hydrochlorothiazide (HCTZ), dolutegravir (Tivicay) or any Class I or Class III anti-arrhythmic within the last three days
AND
I verify that the patient has not taken amiodarone within the last THREE months, or that the patient's amiodarone plasma concentration is <0.3 mcg/mL.
Creatinine 0.9 mg/dL (0.7-1.3) 12/20/24 05:50
Does patient have a Ventricular Conduction Abnormality: No
I have assessed the baseline QTc interval (using QT for heart rate less than 60 bpm) and deemed the patient is appropriate for Dofetilide therapy. I understand that Tikosyn is contraindicated if the QTc is >440msec (500msec in patients with
ventricular conduction abnormalities).
Baseline QTc (in msec): 413
QTc interval is greater than 440msec without conduction abnormality OR greater than 500msec with a conduction abnormality, but acceptable to proceed per Cardiology attending.
Ordering Physician: Ayush Toro
--- NOTE | 2024-12-20 13:15 | PTCARENOTE ---
Received pt from ED, HR with activity 160s, at rest 110s. BP stable, monitor showing afib. Denies pain at present. Family at bedside, oriented to room, call mandel in reach.
[2024-12-20] MEDS: TIKOSYN 250 MCG PO (13:48)
[2024-12-20] MEDS: NSS 1000 IV ×2 (13:53→22:49)
[2024-12-20] MEDS: ELIQUIS 5 MG PO ×2 (14:19→19:22)
[2024-12-20] MEDS: MAGNESIUM SULFATE 102 GRAMS IV (18:29)
[2024-12-20] MEDS: LOPRESSOR 25 MG PO (19:22)
[2024-12-21] VITALS (7 sets, daily range): BP systolic 110–138; BP diastolic 55–81; BMI 25.3
[2024-12-21] MEDS: TIKOSYN 250 MCG PO ×2 (01:02→14:08)
[2024-12-21 03:37] LABS: Hematocrit 35.2 % (39.0-52.0); Mean Corp Hgb Conc. 34.1 g/dL (33.0-37.0); Mean Corpuscular Volume 93.9 fL (80.0-94.0); Mean Platelet Volume 9.3 fL (7.4-10.4); Platelet Count 132 10^3/uL (130-400); Red Blood Cell Count 3.75 10^6/uL (4.70-6.10); Red Cell Dist. Width 11.9 % (11.5-14.5); White Blood Cell Count 6.2 10^3/uL (4.8-10.8)
--- NOTE | 2024-12-21 03:37 | PTCARENOTE ---
Patient's QTc after 2nd of Tikosyn is 472. HR now in 60s afib.
[2024-12-21 03:57] LABS: Blood Urea Nitrogen 17 mg/dl (9-20); Calcium 8.4 mg/dl (8.4-10.2); Carbon Dioxide 22 mmol/L (22-30); Chloride 111 mmol/L (98-107); Estimated Creatinine Clearance 81 ml/min; Glucose 95 mg/dl (70-99); Sodium 141 mmol/L (135-145); eGFR > 60.00
--- NOTE | 2024-12-21 07:50 | W.PN.CARDCBS ---
Addendum entered and electronically signed by Conrado Young MD 12/21/24 12:39:
Patient seen, interviewed and examined by me.
Well-appearing, no acute distress
Regular rate and rhythm with normal S1 and S2, no S3 no S4. There is a grade 1/6 apical holosystolic murmur and no rubs. PMI is normally placed.
Lungs are clear to auscultation bilaterally without wheezes rales or rhonchi.
Abdomen soft nontender nondistended with normoactive bowel sounds
Extremities show trace pretibial edema bilaterally no clubbing or cyanosis.
Neurologic exam is grossly nonfocal.
He has again recurred with symptomatic atrial tachycardia after multiple ablations at [facility], most recently in 2020.
I reviewed his case over the weekend and recommended initiation of dofetilide.
On dofetilide 250 mcg twice daily he is maintaining sinus rhythm and overall feels well.
I reviewed his ECGs and although it is difficult to see atrial activity, he is in an atrial/sinus rhythm. The corrected QT interval has not significantly prolonged. QTc on today's ECG is 472 ms.
Keep magnesium between 2 and 3 and potassium between 4 and 5. Renal function is stable
Maintain dofetilide at 250 mcg twice daily.
I have discussed this with the patient. I have suggested that he return to his assistant head cashier at the [facility], Dr. Walter to have further discussion regarding either maintaining antiarrhythmic drug therapy or moving towards
another mapping and ablation. Patient tells me that he generally prefers to avoid medical therapy so he will likely lean towards another mapping and ablation procedure which I think is very reasonable. Alternatively if we gain good rhythm control
and he tolerates dofetilide this would be a very reasonable option as well.
He should maintain oral anticoagulation for atrial fibrillation/atrial tachycardia later thromboembolic risk reduction.
All of his questions have been answered.
Discussed with nursing staff.
Original Note:
Today's Communication / Plan
-
Continue Tikosyn 250 mcg Q12H
Continue Eliquis
Remains in SR.
Follow QTc on EKG
Impression / Plan
-
Primary meat trimmer: Dr. Conrado Young
Impression:
SVT 200s, with hx of recurrent atrial flutter/atrial fibrillation
Intolerance to Sotalol
h/o ablations in 2017, 2018 and 2020 at [facility]
Tikosyn loading, 1st dose 12/20/2024
s/p Grzegorz patch repair of ASD in 1972
Elevated TSH
Solitary kidney
Klippel-Feil syndrome
Prostate cancer s/p prostatectomy 2022
Left orchiectomy
Hernia repair 2006
Prior TURP
Echo 11/24/2024: EF 50 to 55%, ASD repair without evidence of shunt, mild MR, dilated coronary sinus with known persistent left superior vena cava, study similar to February 2021.
Plan:
-Presented with recurrent SVT. He has known atrial fibrillation and has had multiple prior ablations at [facility] as well as prior intolerance to sotalol.
-Spontaneously converted to SR w/ 3 second conversion pause noted overnight. Remains in SR this AM. QTc stable at 472 ms by EKG @3AM after 2nd dose of Tikosyn.
-Continue Tikosyn 250 mcg Q12H. Will remain hospitalized for 1st 5 doses.
-Continue anticoagulation with Eliquis 5mg BID.
-Recent echo 11/24/2024 showed preserved EF, stable from prior. No need to repeat at this time.
-Would consider follow up with EP at [place] to discuss possibility of repeat ablation.
-TSH elevated at 4.83, defer workup to primary service.
HPI: Yogi is a pleasant 69-year-old male with past medical history significant for Grzegorz patch repair of ASD in [facility] heart and lung [place], paroxysmal SVT/AT status post ablation in 2018 [facility], [facility], ablation [facility] [place] [facility]
with Dr. Walter 2020 for recurrent symptomatic atrial tachycardia following being intolerant to sotalol after sotalol load in January 2021. He was recently seen in the office by Ana ALDANA November 2024 following an ER visit in October 2024 for
recurrent atrial fibrillation. He spontaneously converted to sinus rhythm at that time. He remains on anticoagulation with Eliquis. His Toprol was recently reduced to 25 mg twice a day after he was seen for second opinion at [facility]
[place] with Dr. Walter. He states he was told if he had more recurrence that he would eventually need recurrent ablation. This morning he awoke from sleep with heart rate in the 200s. He noted it on his Apple Watch. He came to the emergency
room and was found to be in SVT 200. He was given IV Lopressor. He was hypotensive and cardioverted in the emergency room to atrial fibrillation. After observation, he was preparing to leave and had another recurrence of SVT 200s. He
spontaneously converted to sinus with short runs of atrial tach. Cardiology is consulted for further evaluation. He denies chest pain or shortness of breath.
Progress Note - Product Operations Associate
Subjective
Date of Service: December 21, 2024
Feeling well in SR.
Objective
Labs:
12/21/24 03:08
12/21/24 03:08
Labs
Hgb 12.0 g/dL (13.0-18.0) L 12/21/24 03:08
Hct 35.2 % (39.0-52.0) L 12/21/24 03:08
Plt Count 132 10^3/uL (130-400) 12/21/24 03:08
Sodium 141 mmol/L (135-145) 12/21/24 03:08
Potassium 4.0 mmol/L (3.5-5.1) 12/21/24 03:08
BUN 17 mg/dl (9-20) 12/21/24 03:08
Creatinine 0.9 mg/dL (0.7-1.3) 12/21/24 03:08
Glucose 95 mg/dl (70-99) 12/21/24 03:08
Vital Signs and I&O:
Vital Signs
Temp Pulse Resp BP Pulse Ox
98.4 F 66 14 110/64 94
12/21/24 03:14 12/21/24 03:30 12/21/24 03:14 12/21/24 02:51 12/21/24 03:14
Vital Signs
Temp Pulse Resp BP Pulse Ox
98.4 F 66 14 110/64 94
12/21/24 03:14 12/21/24 03:30 12/21/24 03:14 12/21/24 02:51 12/21/24 03:14
Intake & Output
12/19/24 12/20/24 12/21/24 12/22/24
06:59 06:59 06:59 06:59
Intake Total 1680 / 1680
Output Total 1100 / 1100
Balance 580 / 580
Physical Exam
Physical Exam
GEN: No distress, awake, alert, oriented x3
HEENT: supple, anicteric, mmm
LUNGS: CTA b/l, no wheezes/rales
CV: Reg, S1/S2, no murmur
EXT: No clubbing, cyanosis, or edema
NEURO: Gross non-focal
SKIN: Warm, dry, no rash
[2024-12-21] MEDS: LOPRESSOR 25 MG PO ×2 (08:18→20:19)
[2024-12-21] MEDS: ELIQUIS 5 MG PO ×2 (08:18→20:19)
[2024-12-21] MEDS: NSS 1000 IV (10:34)
--- NOTE | 2024-12-21 10:49 | PTCARENOTE ---
Assumed care ay 0700. Patient up walking in room. Difficulty seeing p waves on telemetry strip, EKG performed. EKG report sent to Dr. Young, he confirmed NSR not junctional rhythm. No change in plan, VSS, call mandel in reach
--- NOTE | 2024-12-21 12:15 | W.PN.HOSP.TC ---
Today's Communication/Plan
-
see plan
Assessment / Plan
Assessment / Plan
Gen: remains NAD, AAOx3.
Eyes: EOMI, PERRLA, no scleral icterus.
Neck: supple.
CV: RRR, +S1/S2, no m/r/g.
Resp: CTAB anteriorly, no rales, wheezes, or rhonchi.
Abd: +BS, soft, NT, ND
Skin: No rashes.
Neuro: CN 2-12 intact, non-focal.
Psych: Normal mood and affect.
Echo 11/24/24:
1. Status post ASD patch repair without evidence of shunt
2. Normal left ventricular size and wall thickness with paradoxical septal motion. Normal contractility of other LV segments, EF 50-55%
3. Mildly thickened mitral leaflets with mild mitral regurgitation and normal left atrium
4. Normal right heart with normal pulmonary artery systolic pressure
5. Dilated coronary sinus with known persistent left superior vena cava
SVT/AT/afib with RVR:
-Pertinent history includes Grzegorz patch repair of ASD in [facility] and lung [place], paroxysmal SVT/AT status post ablation in 2017 [facility], ablation [facility] 2018, ablation [facility] with Dr. Walter 2020 for recurrent symptomatic atrial
tachycardia following being intolerant to sotalol after sotalol load in January 2021.
-initial ECG (read by me): SVT @ 202, RBBB, QRS 162ms, repolarization abnormalities I, II, V2-V6
-Patient cardioverted in the ER and was given IV Lopressor
-Tikosyn started
-now converted to SR
-cont Eliquis/BB
FULL/Eliquis
Anticipated Discharge: Within 24 hours
Subjective/Interval History
-
Date of Service: December 21, 2024
Denies CP/SOB.
Objective Data
-
Labs:
Laboratory Results
12/21/24
03:08
WBC 6.2
Hgb 12.0 L
Hct 35.2 L
Plt Count 132
Sodium 141
Potassium 4.0
Chloride 111 H
Carbon Dioxide 22
BUN 17
Creatinine 0.9
Glucose 95
Calcium 8.4
Vital Signs:
Vital Signs
Temp Pulse Resp BP Pulse Ox
98.7 F 61 18 113/55 98
12/21/24 08:19 12/21/24 10:00 12/21/24 08:19 12/21/24 08:05 12/21/24 08:19
I&O
12/20/24 12/21/24 12/22/24
06:59 06:59 06:59
Intake Total 1680 / 1680
Output Total 1100 / 1100 300 / 300
Balance 580 / 580 -300 / -300
--- NOTE | 2024-12-21 13:49 | CM ---
CM following for DC planning needs.
Met w/ patient at bedside to complete initial assessment.
Pt. resides in a private, 2 story home w/ spouse. There are approximately 1-2 LEONA. Functionally, patient is indep. w/ ADLs, mobility without the use of any assisted device.
Anticipated DC plan is for home w/ no needs.
Will cont. to follow.
--- NOTE | 2024-12-21 17:02 | PTCARENOTE ---
No complaints during day,walking in room. Call mandel in reach
[2024-12-21 20:17] LABS: Hepatitis C Antibody Negative (Negative)
[2024-12-22] MEDS: TIKOSYN 250 MCG PO ×2 (01:58→12:45)
[2024-12-22 04:14] VITALS: BP 128/58
[2024-12-22 08:13] VITALS: BP 124/70
[2024-12-22] MEDS: LOPRESSOR 25 MG PO (08:19)
[2024-12-22] MEDS: ELIQUIS 5 MG PO (08:19)
--- NOTE | 2024-12-22 09:47 | PTCARENOTE ---
Assumed care. Patient walking in halls and room. NSR, VSS, denies pain. Call mandel in reach
--- NOTE | 2024-12-22 10:09 | W.PN.CARDCBS ---
Addendum entered and electronically signed by Chico Bangura MD 12/22/24 10:53:
Patient seen and examined
Sinus rhythm this morning
Low atrial voltage
Exam:
Alert and orient x 3
Nonfocal neurologically
JVP 6
Cor regular
No murmur
Lungs clear to auscultation bilaterally
No wheezing or rhonchi
Impression:
SVT 200s, with hx of recurrent atrial flutter/atrial fibrillation
Intolerance to Sotalol
h/o ablations in 2017, 2018 and 2020 at [facility]
Tikosyn loading, 1st dose 12/20/2024s/p Grzegorz patch repair of ASD in 1972
Elevated TSH
Solitary kidney
Klippel-Feil syndrome
Prostate cancer s/p prostatectomy 2022
Left orchiectomy
Hernia repair 2006
Prior TURP
Echo 11/24/2024: EF 50 to 55%, ASD repair without evidence of shunt, mild MR, dilated coronary sinus with known persistent left superior vena cava, study similar to February 2021.
Plan:
-Presented with recurrent SVT. He has known atrial fibrillation and has had multiple prior ablations at [facility] as well as prior intolerance to sotalol.
-Spontaneously converted to SR w/ 3 second conversion pause 12/20. Remains in SR/SB this AM on review of tele.
-Continue Tikosyn 250 mcg Q12H. if QTc remains stable after 5th dose, ok for DC today
-Continue anticoagulation with Eliquis 5mg BID.
-continue lopressor
-Recent echo 11/24/2024 showed preserved EF, stable from prior. No need to repeat at this time.
-Follow up with EP at [place] with Dr. Walter to discuss possibility of repeat ablation.
-TSH elevated at 4.83, defer follow up to primary service
-d/w nursing
Original Note:
Today's Communication / Plan
-
tikosyn 250mcg Q12H
if QTc remains stable by 3PM EKG, ok for DC from cardiac standpoint
continue lopressor, eliquis
patient to schedule OP follow up with Dr. Walter
Impression / Plan
-
Primary braid maker: Dr. Conrado Young
Impression:
SVT 200s, with hx of recurrent atrial flutter/atrial fibrillation
Intolerance to Sotalol
h/o ablations in 2017, 2018 and 2020 at [facility]
Tikosyn loading, 1st dose 12/20/2024
s/p Grzegorz patch repair of ASD in 1972
Elevated TSH
Solitary kidney
Klippel-Feil syndrome
Prostate cancer s/p prostatectomy 2022
Left orchiectomy
Hernia repair 2006
Prior TURP
Echo 11/24/2024: EF 50 to 55%, ASD repair without evidence of shunt, mild MR, dilated coronary sinus with known persistent left superior vena cava, study similar to February 2021.
Plan:
-Presented with recurrent SVT. He has known atrial fibrillation and has had multiple prior ablations at [facility] as well as prior intolerance to sotalol.
-Spontaneously converted to SR w/ 3 second conversion pause 12/20. Remains in SR/SB this AM on review of tele.
-Continue Tikosyn 250 mcg Q12H. if QTc remains stable after 5th dose, ok for DC today
-Continue anticoagulation with Eliquis 5mg BID.
-continue lopressor
-Recent echo 11/24/2024 showed preserved EF, stable from prior. No need to repeat at this time.
-Follow up with EP at [place] to discuss possibility of repeat ablation.
-TSH elevated at 4.83, defer follow up to primary service
-d/w nursing
HPI: Yogi is a pleasant 69-year-old male with past medical history significant for Grzegorz patch repair of ASD in 1972 [facility] heart and lung [place], paroxysmal SVT/AT status post ablation in 2018 [facility], ablation [facility], ablation [facility]
with Dr. Walter 2020 for recurrent symptomatic atrial tachycardia following being intolerant to sotalol after sotalol load in January 2021. He was recently seen in the office by Ana ALDANA November 2024 following an ER visit in October 2024 for
recurrent atrial fibrillation. He spontaneously converted to sinus rhythm at that time. He remains on anticoagulation with Eliquis. His Toprol was recently reduced to 25 mg twice a day after he was seen for second opinion at [facility]
[place] with Dr. Walter. He states he was told if he had more recurrence that he would eventually need recurrent ablation. This morning he awoke from sleep with heart rate in the 200s. He noted it on his Apple Watch. He came to the emergency
room and was found to be in SVT 200. He was given IV Lopressor. He was hypotensive and cardioverted in the emergency room to atrial fibrillation. After observation, he was preparing to leave and had another recurrence of SVT 200s. He
spontaneously converted to sinus with short runs of atrial tach. Cardiology is consulted for further evaluation. He denies chest pain or shortness of breath.
Progress Note - Bdc Manager
Subjective
Date of Service: December 22, 2024
patient reports not feeling 100%, but states feels so much better than on admission.
Objective
Labs:
12/21/24 03:08
12/21/24 03:08
Labs
Hgb 12.0 g/dL (13.0-18.0) L 12/21/24 03:08
Hct 35.2 % (39.0-52.0) L 12/21/24 03:08
Plt Count 132 10^3/uL (130-400) 12/21/24 03:08
Sodium 141 mmol/L (135-145) 12/21/24 03:08
Potassium 4.0 mmol/L (3.5-5.1) 12/21/24 03:08
BUN 17 mg/dl (9-20) 12/21/24 03:08
Creatinine 0.9 mg/dL (0.7-1.3) 12/21/24 03:08
Glucose 95 mg/dl (70-99) 12/21/24 03:08
Vital Signs and I&O:
Vital Signs
Temp Pulse Resp BP Pulse Ox
98 F 52 18 124/70 99
12/22/24 08:11 12/22/24 09:45 12/22/24 08:11 12/22/24 08:13 12/22/24 08:11
Vital Signs
Temp Pulse Resp BP Pulse Ox
98 F 52 18 124/70 99
12/22/24 08:11 12/22/24 09:45 12/22/24 08:11 12/22/24 08:13 12/22/24 08:11
Intake & Output
12/20/24 12/21/24 12/22/24 12/23/24
07:59 07:59 07:59 07:59
Intake Total 1680 / 1680
Output Total 1100 / 1100 300 / 300
Balance 580 / 580 -300 / -300
Physical Exam
Physical Exam
GEN: No distress, awake, alert, oriented x3. sitting in chair
HEENT: supple, anicteric, mmm, eomi
LUNGS: CTA B/L, no wheezes/rales
CV: Reg, S1/S2, no murmur
ABD: soft, BS+, NT/ND
EXT: No cyanosis, clubbing, edema
NEURO: Gross non-focal
SKIN: Warm, pink, dry. No rash
[2024-12-22 11:09] VITALS: BP 134/79
--- NOTE | 2024-12-22 12:58 | W.PN.HOSP.TC ---
Today's Communication/Plan
-
d/c
Assessment / Plan
Assessment / Plan
Gen: remains NAD, AAOx3.
Eyes: EOMI, PERRLA, no scleral icterus.
Neck: supple.
CV: RRR, +S1/S2, no m/r/g.
Resp: CTAB anteriorly, no rales, wheezes, or rhonchi.
Abd: +BS, soft, NT, ND
Skin: No rashes.
Neuro: CN 2-12 intact, non-focal.
Psych: Normal mood and affect.
Echo 11/24/24:
1. Status post ASD patch repair without evidence of shunt
2. Normal left ventricular size and wall thickness with paradoxical septal motion. Normal contractility of other LV segments, EF 50-55%
3. Mildly thickened mitral leaflets with mild mitral regurgitation and normal left atrium
4. Normal right heart with normal pulmonary artery systolic pressure
5. Dilated coronary sinus with known persistent left superior vena cava
SVT/AT/afib with RVR:
-Pertinent history includes Grzegorz patch repair of ASD in 1972 [facility] and lung [place], paroxysmal SVT/AT status post ablation in 2017 [facility], ablation [facility] 2018, ablation [facility] with Dr. Walter 2020 for recurrent symptomatic atrial
tachycardia following being intolerant to sotalol after sotalol load in January 2021.
-initial ECG (read by me): SVT @ 202, RBBB, QRS 162ms, repolarization abnormalities I, II, V2-V6
-Patient cardioverted in the ER and was given IV Lopressor
-Tikosyn started, continues
-now converted to SR
-cont Eliquis/BB
-Tikosyn 5th dose at 1300, ECG at 1500, then d/c as per discussion with cardiology
Family updated at bedside.
FULL/Eliquis
Total time spent on d/c = 31 min. This included today's physical exam, progress note, review of laboratory and diagnostic data, preparation of discharge documents and prescriptions, and discussions about the pt's hospital course and discharge plan
with the patient and other medical accountant involved in the patient's care.
Anticipated Discharge: Today
Subjective/Interval History
-
Date of Service: December 22, 2024
Denies chest pain or shortness of breath.
Objective Data
-
Vital Signs:
Vital Signs
Temp Pulse Resp BP Pulse Ox
97.4 F 66 18 134/79 95
12/22/24 11:10 12/22/24 12:30 12/22/24 11:10 12/22/24 11:09 12/22/24 11:10
I&O
12/21/24 12/22/24 12/23/24
06:59 06:59 06:59
Intake Total 1680 / 1680
Output Total 1100 / 1100 300 / 300
Balance 580 / 580 -300 / -300
--- NOTE | 2024-12-22 13:45 | CM ---
CM following for DC planning needs.
Plan is for DC to home today.
Met w/ patient and spouse, at bedside.
Dofetilide is in stock @ [facility], [place] and estimated co pay is 31.28$
Pt. feels well and is agreeable to DC today, offers no concerns at this time.
Plan- home, no needs.
--- NOTE | 2024-12-22 15:44 | PTCARENOTE ---
Patient discharged to home. All discharge teaching completed and patient verbalized understanding. IV and telemetry remove. Patient escorted to main lobby
--- NOTE | 2024-12-22 15:51 | W.DCSUMMARY ---
Discharge Summary
Discharge Data
Date of Admission: 12/20/24
Date of Discharge: 12/22/24
-
Pending Results: No
Hospital Course
Primary diagnoses:
Supraventricular tachycardia with h/o recurrent atrial flutter/atrial fibrillation
Secondary diagnoses:
Grzegorz patch repair of ASD in 1972 [facility] and lung [place], paroxysmal SVT/AT status post ablation in 2017 [facility], ablation [facility] 2018, ablation [facility] with Dr. Walter 2020 for recurrent symptomatic atrial tachycardia following being
intolerant to sotalol after sotalol load in January 2021.
Consultants:
Cardiology
Imaging:
None
Hospital course: 69-year-old male who presented with a chief complaint of tachycardia as outlined in the H&P done on admission. Patient was found to be in SVT with a rate of around 200. Patient was cardioverted in the ER and then was given IV
Lopressor. He was initiated on Tikosyn. He converted to sinus rhythm. He completed 5 doses of Tikosyn and was cleared for discharge by cardiology on Tikosyn and metoprolol.
Discharge Plan
-
Patient Disposition: Home (Routine Discharge)
Discharge Diagnosis/Procedures: Atrial fibrillation with a rapid ventricular response
Condition: Good
Diet: Low Cholesterol and 2 Gram Sodium
Activity: As tolerated
Driving Restrictions: As prior to admission
Bathing Restrictions: None
Referrals:
Conrado Young MD [Active] - 02/04/25 4:20 pm (You have a cardiology follow-up appointment at the [place] office. Please call with questions)
Joaquin Holm DO [Family Provider] - in less than 1 week
Additional Discharge Medication Instructions: Please call to arrange follow up with Dr. Waletr.
Prescriptions:
New
dofetilide 250 mcg Capsule
250 mcg PO Q12H Qty: 60 11RF
metoprolol tartrate 25 mg Tablet
25 mg PO BID Qty: 60 0RF
Continued
vitamin B complex 1 TAB tablet
1 tab PO DAILY
Eliquis 5 MG tablet
5 mg PO BID Qty: 60 3RF
cholecalciferol (vitamin D3) [Vitamin D3] 1,000 UNIT capsule
1,000 unit PO DAILY
alpha lipoic acid 100 mg Capsule
100 mg PO HS
Total Restore
1 cap PO BID
Discontinued
ashwagandha extract 500 mg Capsule
500 mg PO BID
metoprolol succinate 25 MG tablet extended release 24 hr
12.5 mg PO BID
metoprolol succinate 50 mg tablet extended release 24 hr
50 mg PO BID Qty: 60 0RF
Discharge Orders:
Discharge Patient (As Directed); Ordered 12/22/24
Ordered By: Hawk Camara
Care Plan Goals
Care Plan Goals:
Problem: Readiness for enhanced knowledge related to diagnosis and treatment plan
Goal: Understand your diagnosis and treatment plan needs, including medications if applicable.
Instructions: Know your diagnosis, underlying causes and treatment plan options, including medications if applicable. Consult with your health care team to learn about your diagnosis and treatment plan, including medications if applicable.
Discharge Date and Time
Print Language: SINGAPORE[place]
== END 2024-12-22 15:40 | disposition home or self-care (01) | DRG 309 ==
LOC: IVU 11:55
PROVIDERS: ADMITTING PHYSICIAN Nuclear Medicine Nuclear Cardiology; ATTENDING PHYSICIAN Internal Medicine; EMERGENCY PHYSICIAN Student in an Organized Health Care Education/Training Program; FAMILY PHYSICIAN Family Medicine
PROC: 5A2204Z Restoration of Cardiac Rhythm, Single (ICD-10-PCS; 2024-12-20)
DX: I47.10 Supraventricular tachycardia, unspecified (principal); Q26.1 Persistent left superior vena cava; I48.91 Unspecified atrial fibrillation; I48.92 Unspecified atrial flutter; Z79.01 Long term (current) use of anticoagulants; Z85.46 Personal history of malignant neoplasm of prostate; Z90.79 Acquired absence of other genital organ(s); Q76.1 Klippel-Feil syndrome; Z88.1 Allergy status to other antibiotic agents; I45.10 Unspecified right bundle-branch block
CPT/HCPCS: 80048; 83735; 84132; 84443; 85025; 85027; 86803; 92960; 93005; 96374; 96376; 99152; 99291

== ENCOUNTER → 2025-01-08 09:34 | Outpatient (REF) | payer MEDICARE, OTHER, SELFPAY | LOC: HWRAD 09:34 | PROVIDERS: ATTENDING PHYSICIAN Chiropractor; FAMILY PHYSICIAN Family Medicine | DX: M54.6 Pain in thoracic spine (principal); M53.2X7 Spinal instabilities, lumbosacral region | CPT/HCPCS: 72072; 72110 ==

== ENCOUNTER 2025-01-08 12:15 | Emergency (ER) | payer MEDICARE, OTHER, SELFPAY ==
[2025-01-08] VITALS (7 sets, daily range): BP systolic 120–132; BP diastolic 63–73; BMI 25.5
[2025-01-08 12:56] LABS: % Basophils 0.6 % (0-2); % Lymphocytes 20.8 % (20.5-51.1); % Monocytes 11.9 % (1.7-9.3); % Neutrophils 64.7 % (42.2-75.2); Absolute Eosinophils 0.1 10^3/uL (0-0.7); Absolute Monocytes 0.6 10^3/uL (0.1-0.6); Absolute Neutrophils 3.2 10^3/uL (1.4-6.5); Hematocrit 39.3 % (39.0-52.0); Hemoglobin 13.1 g/dL (13.0-18.0); Mean Corp Hgb Conc. 33.3 g/dL (33.0-37.0); Mean Corpuscular Volume 93.1 fL (80.0-94.0); Mean Platelet Volume 8.4 fL (7.4-10.4); Nucleated Red Blood Cells % 0 % (-); Platelet Count 119 10^3/uL (130-400); Red Blood Cell Count 4.22 10^6/uL (4.70-6.10)
--- NOTE | 2025-01-08 12:58 | ED.GENMED ---
History of Present Illness
General
Chief Complaint: Rectal Bleeding
Source: patient
Time Seen by Provider: 01/08/25 12:45
History of Present Illness
History of Present Illness:
69-year-old male presents to the emergency room complaining of rectal bleeding. Patient noted he has had blood with his stool but is had a bowel movement over the past several days. He denies any dizziness, lightheadedness. He does endorse pain
in the left lower quadrant. The pain is constant. It is worse with some movement. No fever or chills. Patient has been able to perform his daily activities without difficulty. Patient had a colonoscopy in September 2022 that was normal.
Past History
Past History
ED Past Medical History: Arrthythmia and Other (ASD with repair, atrial flutter with hospitalization in October, Ablation at [facility] in hospital for 6 days DC 03/10/21.)
ED Past Surgical History: Cardiac and Other (Hernia)
Social History
Tobacco: Non-smoker
Alcohol: Occasional
Drug: None
Personal:
Living: with family
Employment: Employed
Family History
Family History: Other (Noncontributory)
Phy Exam
Physical Exam
Physical Exam:
General: Awake, Alert, Oriented X3. No acute distress.
Vitals: unremarkable
Head: Atraumatic
Eyes: Pupils equal, EOMI
Throat: Airway intact, no exudates
Neck: Trachea midline
Lungs: Clear and equal b/l
Heart: Regular rate, no murmurs
Abd: Soft, moderate left lower quadrant tenderness to palpation, no pulsatile mass
Rectal: Normal stool, no masses palpated
Neuro: Nonfocal
Skin: Warm, dry, no rash
Extremities: pulses equal b/l, no edema
Course
Orders/Labs/Results
Orders:
Orders
01/08/25 12:49
Type+Screen Urgent
Complete Blood Count/With Diff Urgent
Comprehensive Metabolic Panel Urgent
PT/INR [Prothrombin Time] Urgent
PTT Urgent
01/08/25 12:57
CT Abd/pelvis W Iv Cont Urgent
Comment:
Reason For Exam: llq pain, rectal bleeding
Abnormal Lab Results
01/08/25
12:49
RBC 4.22 L 10^6/uL
(4.70-6.10)
Plt Count 119 L 10^3/uL
(130-400)
Absolute Lymphs (auto) 1.0 L 10^3/uL
(1.2-3.4)
Monocytes % 11.9 H %
(1.7-9.3)
PT 15.7 H Sec
(11.4-14.6)
BUN 24 H mg/dl
(9-20)
01/08/25 12:49
01/08/25 12:49
Vital Signs
Initial and Last Documented VS:
Initial Vital Signs
Temp Pulse Resp BP Pulse Ox
97.8 F 55 20 126/64 100
01/08/25 12:21 01/08/25 12:21 01/08/25 12:21 01/08/25 12:21 01/08/25 12:21
Last Documented Vital Signs
Temp Pulse Resp BP Pulse Ox
97.8 F 59 17 124/73 97
01/08/25 12:21 01/08/25 17:00 01/08/25 14:00 01/08/25 17:00 01/08/25 17:00
MDM/Problems Addressed
Differential Diagnosis Includes:
Internal hemorrhoids, anal fissure, lower GI bleed
MDM/Problems Addressed:
Patient presents with some blood around normal stool. Hemoglobin stable. Abdominal exam is benign. CT shows some wall thickening in the proximal jejunum which does not appear to be related to his symptoms today. This can be followed up as an
outpatient. No acute inflammatory process noted. I suspect the patient's bleeding is from an internal hemorrhoid. Given his stable hemoglobin, stable vital signs and a history which does not really seem consistent with true lower GI bleeding I
feel is stable for him to be discharged home and follow-up as an outpatient
*Radiology
Radiology exam reviewed: radiology read reviewed
*Pulse Oximetry
Patient hypoxic: no
*Critical Care Note
Total Time (30-74mins, 75-104mins- exclusive of procedures): Not Applicable
ED Attending Note
-
Portions of this chart may have been created with voice recognition software.� Occasional wrong word or��sound alike� substitutions may have occurred due to the inherent limitations of voice recognition software.
Discharge Plan
Departure
Patient Disposition: Home (Routine Discharge)
Date of Disposition: 01/08/25
Time of Disposition: 17:02
Patient with high blood pressure during this ER visit?: No
Condition: Good
Discharge Problem:
Colitis with rectal bleeding, Internal hemorrhoid
Instructions: Hemorrhoids (DC), Gastrointestinal Bleeding (DC)
Prescriptions:
No Action
vitamin B complex 1 TAB tablet
1 tab PO DAILY
Eliquis 5 MG tablet
5 mg PO BID Qty: 60 3RF
cholecalciferol (vitamin D3) [Vitamin D3] 1,000 UNIT capsule
1,000 unit PO DAILY
Total Restore
1 cap PO BID
dofetilide 250 mcg Capsule
250 mcg PO Q12H Qty: 60 11RF
metoprolol tartrate 25 mg Tablet
25 mg PO BID Qty: 60 0RF
Collagen Skin Renewal 30-833.3 mg Tablet
1 tab PO BID
ashwagandha extract 120 mg Capsule
120 mg PO DAILY
Referrals:
Samir Matias MD [Active] -
Sanaz Sherwood DO [Family Provider] -
Activity Restrictions/Additional Instructions:
Return to the emergency room if you develop maroon stool or have heavier bleeding. Call Dr. Matias's office to arrange follow-up.
Interventions
Interventions:
*Risk Screen - Suicide Last Done: 01/08/25 12:24
*General Assessment Last Done: 01/08/25 12:24
*Neglect/Abuse Screening Last Done: 01/08/25 13:00
*ED- Fall Risk Assessment Last Done: 01/08/25 13:00
*ED COVID-19 Vaccine History Last Done: 01/08/25 13:00
*Nursing Disposition Last Done: 01/08/25 17:22
XF-Tbnhir-Yikyqgbafg Assessment Last Done: 01/08/25 12:59
ED- Cardiac Assessment Last Done: 01/08/25 12:59
ED- Pulmonary Assessment Last Done: 01/08/25 12:59
Discharge Date and Time
Discharge Date/Time: 01/08/25 17:23
Print Language: MOHAWK
[2025-01-08 13:06] LABS: INR 1.22; PT 15.7 Sec (11.4-14.6)
[2025-01-08 13:07] LABS: APTT 34.3 Sec (23.4-35.0)
[2025-01-08 13:14] LABS: ALT (SGPT) 49 U/L (0-50); AST (SGOT) 28 U/L (17-59); Albumin 4.5 g/dl (3.5-5.0); Alkaline Phosphatase 82 U/L (38-126); Blood Urea Nitrogen 24 mg/dl (9-20); Calcium 8.9 mg/dl (8.4-10.2); Carbon Dioxide 29 mmol/L (22-30); Chloride 106 mmol/L (98-107); Glucose 76 mg/dl (70-99); Potassium 4.4 mmol/L (3.5-5.1); Sodium 142 mmol/L (135-145); Total Bilirubin 0.8 mg/dl (0.2-1.3); Total Protein 6.8 g/dl (6.3-8.2); eGFR > 60.00
== END 2025-01-08 17:23 | disposition home or self-care (01) ==
LOC: EMR 12:15
PROVIDERS: Emergency Medicine; EMERGENCY PHYSICIAN Emergency Medicine; FAMILY PHYSICIAN Family Medicine
DX: K52.9 Noninfective gastroenteritis and colitis, unspecified (principal); K64.8 Other hemorrhoids; K62.5 Hemorrhage of anus and rectum
CPT/HCPCS: 99285; 72072; 72110; 74177; 80053; 85025; 85610; 85730; 86850; 86900; 86901; Q9967

== ENCOUNTER → 2025-02-26 09:18 | Outpatient (REF) | payer MEDICARE, OTHER, SELFPAY ==
[2025-02-26 11:27] LABS: Urine Albumin Negative (Neg - Trace); Urine Bilirubin Negative (Negative); Urine Character Clear (Clear); Urine Color Yellow; Urine Glucose Negative (Negative); Urine Ketone Negative (Negative); Urine Leukocyte Negative (Negative); Urine Nitrite Negative (Negative); Urine Occult Blood Negative (Negative); Urine Specific Gravity 1.015 (<1.030); Urine Urobilinogen Negative (Neg - 1+)
[2025-02-26 11:39] LABS: % Basophils 0.8 % (0-2); % Eosinophils 2.9 % (0-6); % Immature Granulocytes 0.2 % (0-0.5); % Lymphocytes 20.3 % (20.5-51.1); % Monocytes 11.5 % (1.7-9.3); % Neutrophils 64.3 % (42.2-75.2); Absolute Eosinophils 0.1 10^3/uL (0-0.7); Absolute Monocytes 0.6 10^3/uL (0.1-0.6); Absolute Neutrophils 3.1 10^3/uL (1.4-6.5); Hematocrit 38.2 % (39.0-52.0); Mean Corpuscular Hgb 31.9 pg (27.0-31.0); Mean Corpuscular Volume 93.6 fL (80.0-94.0); Mean Platelet Volume 9.4 fL (7.4-10.4); Nucleated Red Blood Cells % 0 % (-); Platelet Count 144 10^3/uL (130-400); Red Blood Cell Count 4.08 10^6/uL (4.70-6.10); Red Cell Dist. Width 11.9 % (11.5-14.5); White Blood Cell Count 4.8 10^3/uL (4.8-10.8)
[2025-02-26 11:53] LABS: ALT (SGPT) 38 U/L (0-50); AST (SGOT) 24 U/L (17-59); Albumin 4.3 g/dl (3.5-5.0); Alkaline Phosphatase 67 U/L (38-126); Blood Urea Nitrogen 19 mg/dl (9-20); Calcium 9.2 mg/dl (8.4-10.2); Carbon Dioxide 26 mmol/L (22-30); Chloride 108 mmol/L (98-107); Glucose 94 mg/dl (70-99); HDL Cholesterol 44 mg/dl; LDL Cholesterol, Calculated 99 mg/dl; Potassium 4.3 mmol/L (3.5-5.1); Sodium 141 mmol/L (135-145); Total Bilirubin 0.9 mg/dl (0.2-1.3); Total Cholesterol 155 mg/dl (50-199); Total Protein 6.9 g/dl (6.3-8.2); Triglyceride 64 mg/dl (10-149); Very Low Density Lipoprotein 12 mg/dl (0-30); eGFR > 60.00
[2025-02-26 12:15] LABS: PSA, Total - Diagnostic 0.15 ng/ml (0.0-4.0); TSH 3.91 uIU/ml (0.47-4.68)
== END ==
LOC: HWLAB 09:18
PROVIDERS: ATTENDING PHYSICIAN Family Medicine; OTHER PHYSICIAN Specialist; REFERRING PHYSICIAN Urology
DX: Z85.46 Personal history of malignant neoplasm of prostate (principal); R79.89 Other specified abnormal findings of blood chemistry; Z13.0 Encounter for screening for diseases of the blood and blood-forming organs and certain disorders involving the immune mechanism; R73.09 Other abnormal glucose; Z13.220 Encounter for screening for lipoid disorders; R82.90 Unspecified abnormal findings in urine; I48.91 Unspecified atrial fibrillation
CPT/HCPCS: 36415; 80053; 80061; 81003; 84153; 84443; 85025

== ENCOUNTER → 2025-06-15 13:39 | Outpatient (REF) | payer MEDICARE, OTHER, SELFPAY ==
[2025-06-15 18:36] LABS: PSA, Total - Diagnostic 0.21 ng/ml (0.0-4.0)
== END ==
LOC: HWLAB 13:39
PROVIDERS: FAMILY PHYSICIAN Family Medicine; OTHER PHYSICIAN Specialist
DX: C61 Malignant neoplasm of prostate (principal)
CPT/HCPCS: 36415; 84153

== ENCOUNTER 2025-08-29 13:01 | Inpatient (IN) | payer MEDICARE, OTHER, SELFPAY ==
[2025-08-29] VITALS (8 sets, daily range): BP systolic 124–132; BP diastolic 71–84; BMI 24.7; BMI 24.3
--- NOTE | 2025-08-29 09:48 | ED.GENMED ---
History of Present Illness
General
Chief Complaint: Heart Rate Problem
Time Seen by Provider: 08/29/25 09:41
Nursing documentation reviewed up to this point in time: agreed with
History of Present Illness
History of Present Illness:
70-year-old male presents to the ER for treatment of atrial fibrillation. Patient has an extensive prior history of same status post multiple cardioversions and ablation. He is currently on Tikosyn. He had been in contact with his applications manager
over the past few weeks due to increasing feelings of palpitations and has been taking increased dose of metoprolol as prescribed, although was recommended to take 4 times a day and he has been taking more consistently 3 times a day. He states that
at nighttime he is feeling very tired and has some discomfort in his bilateral axillas and neck. He has no chest pain at the current time. He reports feeling more fatigue with activities. He denies paroxysmal nocturnal dyspnea, he denies
orthopnea. He denies peripheral edema. He reports that he had previously been recommended for admission for increased dosing of tikosyn.
Past History
Past History
ED Past Medical History: Arrthythmia and Other (ASD with repair, atrial flutter with hospitalization in October, Ablation at [facility] in hospital for 6 days DC 03/10/21.)
ED Past Surgical History: Cardiac and Other (Hernia)
Social History
Tobacco: Non-smoker
Alcohol: Occasional
Drug: None
Personal:
Living: with family
Employment: Employed
Family History
Family History: Other (Noncontributory)
Review of Systems
Review of Systems
Allergies reviewed?: Yes
Phy Exam
Physical Exam
Physical Exam:
Patient is awake, alert, appears in no acute distress, head is NCAT, PERRL, EOMI mucous membranes moist, conjunctiva pink, heart irregularly irregular rate and rhythm without murmurs, lungs are clear to auscultation without wheezes rales or
rhonchi, no JVD, abdomen is soft and nontender on palpation, extremities without edema, GCS is 15
Course
Orders/Labs/Results
Orders:
Orders
08/29/25 09:37
Electrocardiogram (*1) Urgent
Reason for Study: Chest Pain
EKG- Treatment ONCE
08/29/25 09:42
TSH Urgent
08/29/25 09:43
CR Chest - 2 Views Urgent
Comment:
Reason For Exam: dyspnea
08/29/25 09:52
Complete Blood Count/With Diff Urgent
Comprehensive Metabolic Panel Urgent
Magnesium Urgent
PTT Urgent
Prothrombin Time Urgent
Troponin I Urgent
08/29/25 11:07
Add On- LAB Urgent
Tests Added?: TSH
Abnormal Lab Results
08/29/25
09:52
RBC 4.31 L 10^6/uL
(4.70-6.10)
MCV 94.4 H fL
(80.0-94.0)
MCH 31.8 H pg
(27.0-31.0)
Absolute Monos (auto) 0.7 H 10^3/uL
(0.1-0.6)
Lymphocytes % 19.9 L %
(20.5-51.1)
Monocytes % 11.6 H %
(1.7-9.3)
PT 15.3 H Sec
(11.4-14.6)
BUN 21 H mg/dl
(9-20)
Glucose 117 H mg/dl
(70-99)
08/29/25 09:52
08/29/25 09:52
CBC within normal limits. Kidney function preserved. Troponin negative.
Vital Signs
Initial and Last Documented VS:
Initial Vital Signs
Temp Pulse Resp BP Pulse Ox
97.6 F 89 20 128/78 98
08/29/25 09:34 08/29/25 09:34 08/29/25 09:34 08/29/25 09:34 08/29/25 09:34
Last Documented Vital Signs
Temp Pulse Resp BP Pulse Ox
97.6 F 95 13 128/78 99
08/29/25 09:34 08/29/25 11:30 08/29/25 11:30 08/29/25 09:34 08/29/25 11:30
MDM/Problems Addressed
Differential Diagnosis Includes:
Differential diagnosis to consider but not limited to congestive heart failure, atrial flutter, electrolyte dyscrasia, anemia, along with other etiologies considered
Chronic conditions affecting care:
A-fib on long-term anticoagulation, age greater than 50, history of ASD status post repair
*Radiology
Radiology exam reviewed: preliminary read by ED provider (I independently viewed and interpreted portable chest x-ray showing hyperinflation, no gross infiltrate) and radiology read reviewed (I reviewed radiology interpretation, no acute finding)
*Pulse Oximetry
SaO2: 98
Oxygen Mode of Delivery: Room air
Patient hypoxic: no
*EKG
Interpreted by ED Provider?: Yes (I independently viewed and interpreted twelve-lead EKG showing a flutter with 2 1 block, rate 110, leftward axis, no ST elevation, this is nonspecific abnormal EKG without evidence for acute ischemia, increased rate
compared to prior from 12/22/2024)
*Can Sorter Interpretation
Rate: tachycardiac (I independently viewed and interpreted rhythm strip showing a flutter with 2-1 block, no ectopy)
*Critical Care Note
Total Time (30-74mins, 75-104mins- exclusive of procedures): Not Applicable
Data Reviewed
Review of Other/Old Records Reveals: Discharge Summary (I reviewed discharge summary from Dr. Camara dated 12/22/2024. Patient had been admitted for treatment of A-fib with RVR. I reviewed medication list at this time)
Update Note
Update Note:
I reached out to on-call applications manager, Dr. Gloria, to review patient presentation and history. He would recommend hospitalist admission for further care.
1030: I reviewed patient information with hospitalist who accepts patient for admission for further care of symptomatic atrial flutter
ED Attending Note
-
Portions of this chart may have been created with voice recognition software.� Occasional wrong word or��sound alike� substitutions may have occurred due to the inherent limitations of voice recognition software.
Discharge Plan
Departure
Patient Disposition: Admit
Date of Disposition: 08/29/25
Time of Disposition: 10:47
Presentation/result/management discussed w/ accepting MD/DO: Hospitalist
Discharge Problem:
Atrial flutter
Prescriptions:
No Action
vitamin B complex 1 TAB tablet
1 tab PO DAILY
Eliquis 5 MG tablet
5 mg PO BID Qty: 60 3RF
cholecalciferol (vitamin D3) [Vitamin D3] 1,000 UNIT capsule
1,000 unit PO DAILY
Total Restore
1 cap PO BID
dofetilide 250 mcg Capsule
250 mcg PO Q12H Qty: 60 11RF
Collagen Skin Renewal 30-833.3 mg Tablet
1 tab PO BID
ashwagandha extract 120 mg Capsule
120 mg PO DAILY
metoprolol tartrate 25 mg tablet
25 mg PO TID
Referrals:
Shamar Gloria MD [Family Provider, Family Practice]
Interventions
Interventions:
*Risk Screen - Suicide Last Done: 08/29/25 09:34
*General Assessment Last Done: 08/29/25 09:34
*Neglect/Abuse Screening Last Done: 08/29/25 09:34
*ED COVID-19 Vaccine History Last Done: 08/29/25 09:45
*ED Influenza Vaccine History Last Done: 08/29/25 09:45
[facility] Fall Risk Assessment Tool Last Done: 08/29/25 09:50
ED- Cardiac Assessment Last Done: 08/29/25 10:19
ED- Pulmonary Assessment Last Done: 08/29/25 10:19
Discharge Date and Time
Print Language: SETSWANA
[2025-08-29 10:11] LABS: Hematocrit 40.7 % (39.0-52.0); Hemoglobin 13.7 g/dL (13.0-18.0); Mean Corp Hgb Conc. 33.7 g/dL (33.0-37.0); Mean Corpuscular Volume 94.4 fL (80.0-94.0); Nucleated Red Blood Cells % 0 % (-); Platelet Count 153 10^3/uL (130-400); Red Cell Dist. Width 11.9 % (11.5-14.5)
[2025-08-29 10:13] LABS: APTT 33.0 Sec (23.4-35.0); INR 1.19; PT 15.3 Sec (11.4-14.6)
[2025-08-29 10:22] LABS: ALT (SGPT) 29 U/L (0-50); AST (SGOT) 23 U/L (17-59); Albumin 4.3 g/dl (3.5-5.0); Alkaline Phosphatase 85 U/L (38-126); Blood Urea Nitrogen 21 mg/dl (9-20); Calcium 8.8 mg/dl (8.4-10.2); Carbon Dioxide 27 mmol/L (22-30); Chloride 103 mmol/L (98-107); Estimated Creatinine Clearance 72 ml/min; Glucose 117 mg/dl (70-99); Magnesium 2.0 mg/dl (1.6-2.3); Potassium 3.9 mmol/L (3.5-5.1); Sodium 136 mmol/L (135-145); Total Protein 7.1 g/dl (6.3-8.2); eGFR > 60.00
[2025-08-29 10:33] LABS: Troponin I < 0.012 ng/ml
--- NOTE | 2025-08-29 12:46 | HPS.HSE ---
Addendum entered and electronically signed by Chen Sanabria MD 08/29/25 15:20:
I personally performed a history and physical exam of the patient and discussed management with the resident. I reviewed the resident's note and agree with the documented findings and plan of care HPI/CC.
GENERAL: well developed, well nourished, male in no apparent distress
HEENT:NC/AT--NO O2 requirements
HEART: irreg irreg
LUNGS : clear to auscultation bilaterally
ABDOM: soft, nontender, nondistended, + bowel sounds
EXT: no cyanosis, clubbing, or edema
NEUROLOGIC: grossly intact
Palpitations--patient with complex cardiac history including multiple cardiac ablations and cardioversions for atrial tachyarrhythmias--unclear if patient is having paroxysmal atrial fibrillation with periods of RVR--admitting to IVU--cardiology
consult--medication adjustment for now--patient had monitor that he just mailed in a few days ago but has not yet received the results--patient may be headache for ablation and pacemaker (his thoughts)--patient thinks psychosocial stressors could
trigger an exacerbation of this-- electrolytes within normal limits, and he denies EtOH use--check echo--continue Tikosyn, metoprolol tartrate, Eliquis
prostate cancer s/p prostatectomy - follows at [facility] - will be undergoing further imaging and possible additional radiation due to a rising PSA
Klippel-Feil syndrome- chronic; solitary kidney per chart review- reports neck/left armpit soreness, may be attributed to this condition
Code status--Full Code
DVT proph-- apixaban
Original Note:
Family Physician
-
Family Physician: Shamar Gloria
Chief Complaint
-
palpitations, fatigue
History of Present Illness
70 yo M PMH recurrrent atrial arrhythmias s/p multiple ablations and cardioversion, ASD repair in 2012, persistent LSVC presenting with palpitations, fatigue, and tachycardia.
He has experienced intermittent episodes of palpitations with tachyarrythmia that have generally lasted on the order of 20-30 minutes and self-resolved. However, this current episode of palpitations began on . He notes a HR range of 100-115
by Apple watch and it has been consistently HR 90 - 115. He reports some possible lightheadedness, and fatigue. He denies chest pain (endorses long standing soreness in left armpit and neck). He denies headache, dyspnea. He denies abdominal pain. He
denies lower extremity edema.
He reports that trigger could be psychosocial because he went a drive to [place] the day before last and then reported managing his finances with son (he says he gets stressed while doing that)
He recently completed a portable heart monitoring (results pending).
He takes dofetilide 250mg bid, metoprolol tartrate 25mg tid, and apiaxban 5mg bid, and reports excellent adherence to meds. He reports that his cardiology was suggesting to increase his medication dosages at last appointment in/around July 2025.
Social Hx: unremarkable (denies etoh, smoking, rec drugs)
drug allergies: penicillins - rash
He specifically denies hx of HTN, HLD, DM, CVA, CHF
Last echo in 12/2024: EF 50-55%
In ED, VS HR 89, BP 128/78, spO2 98%
CBC unremarkable
electrolytes unremarkable, K 3.9, Cr 1.0, glucose 117, Ca 8.8, MG 2.0
LFTs wnl
Troponin < 0.012 (negative)
TSH 3.79
EKG sinus tachycardia(draft read)
CXR no acute process
Medical History
Past Medical History
Past Medical History: Reports Arrhythmia (atrial flutter, SVT, IVCD, PAC, PVCs) and Other (prostate cancer, single kidney, BPH, klippel feil syndrome, syncope )
Past Surgical History: Reports Cardiac (cardioversion, ablation, asd repair), Urological (left orichiectomy, TURP, prostatectomy) and Other
Social History
Tobacco: Non-smoker
Alcohol: None
Drug: None
Personal:
Family History
Family History: Other (father, stroke)
Allergies / Home Medications
Allergies reflects when Allergies were last updated in [facility].
Home Medications with original date entered in [facility]
Allergy/Medication List:
Allergies
Allergy/AdvReac Type Severity Reaction Status Date / Time
cat dander Allergy DIFFICULTY Verified 08/29/25 09:36
BREATHING
erythromycin base Allergy Rash Verified 08/29/25 09:36
mold Allergy DIFFICULTY Verified 08/29/25 09:36
BREATHING
Home Medications
vitamin B complex 1 tab PO DAILY Supplement 09/21/16
apixaban 5 mg tablet (Eliquis) 5 mg PO BID #60 tabs 01/04/21
cholecalciferol (vitamin D3) 25 mcg (1,000 unit) capsule (Vitamin D3) 1,000 unit PO DAILY Supplement 02/14/21
Total Restore 1 cap PO BID Supplement 11/20/24
dofetilide 250 mcg capsule 250 mcg PO Q12H #60 caps 12/22/24
ascorbic acid 30 mg-collagen, hydrolyzed 833.3 mg tablet (Collagen Skin Renewal) 1 tab PO BID 01/08/25
ashwagandha extract 120 mg capsule 120 mg PO DAILY 01/08/25
metoprolol tartrate 25 mg tablet 25 mg PO TID 08/29/25
Review of Systems
-
History Source: Patient
Constitutional: Reports Fatigue
EENT: Reports No Symptoms
Respiratory: Reports No Symptoms
Cardiac: Reports Palpitations
Abdomen/GI: Reports No Symptoms
: Reports No Symptoms
Musculoskeletal: Reports No Symptoms
Neurological: Reports No Symptoms
Physical Exam
Vital Signs
Vital Signs
Temp Pulse Resp BP Pulse Ox
97.6 F 96 18 125/71 99
08/29/25 09:34 08/29/25 12:21 08/29/25 12:00 08/29/25 12:21 08/29/25 12:00
Physical Exam
General: Conversant
HEENT: NormoCephalic
Respiratory: Clear
Cardiac: Irregular Rhythm and Other (no murmurs on my exam)
GI: Soft, Non Tender, Non Distended and Normal Bowel Sounds
Musculoskeletal: No Edema
Neuro: AO x 3, No Motor Deficits and Nonfocal/grossly intact
Psych: Calm
Laboratory Results
-
08/29/25 09:52
08/29/25 09:52
Laboratory Results
PT 15.3 Sec (11.4-14.6) H 08/29/25 09:52
INR 1.19 08/29/25 09:52
APTT 33.0 Sec (23.4-35.0) 08/29/25 09:52
Total Bilirubin 0.7 mg/dl (0.2-1.3) 08/29/25 09:52
AST 23 U/L (17-59) 08/29/25 09:52
ALT 29 U/L (0-50) 08/29/25 09:52
Alkaline Phosphatase 85 U/L (38-126) 08/29/25 09:52
Troponin I < 0.012 ng/ml 08/29/25 09:52
EKG: (Draft read)
Vent. Rate : 110 BPM Atrial Rate : 110 BPM
P-R Int : 168 ms QRS Dur : 100 ms
QT Int : 360 ms P-R-T Axes : 97 -61 30 degrees
QTcB Int : 487 ms
SINUS TACHYCARDIA
INCOMPLETE RIGHT BUNDLE BRANCH BLOCK
LEFT ANTERIOR FASCICULAR BLOCK
CXR: no acute cardiopulmonary process
Impression/Plan
-
In summary, 70 yo M PMH recurrent atrial arrhythmias s/p multiple ablations and cardioversion, ASD repair in 2013, persistent LSVC presenting with palpitations, fatigue, and tachycardia currently most concerning for atrial arrhythmia: atrial
fibrillation w/wo RVR; atrial flutter.
Palpitations
Possible atrial fibrillation with RVR, likely paroxysmal vs. atrial flutter vs. other atrial arrhythmia
PMH artrial arrhythmias s/p multiple cardioversions and ablations
- patient reports sensation of palpitations
- during my interview, pulse was irregular, and telemetry showed HR > 100 with absent (or difficult to identify) p-waves and inconsistent RR intervals -> afib with RVR
- reassuringly, hemodynamically stable and denies presyncope during encounter
- EKG during ED was tentatively draft read as sinus tach
- trigger is likely related to extensive cardioversion/ablation and ASD repair with congenital persistent LSVC which probably predisposes to arrhythmias.
- trigger could be psychosocial because he went a drive to [place] the day before last and then reported managing his finances with son (he says he gets stressed while doing that)
- Of note, his HR is 90-110s while on home dofetilide and metoprolol tartrate.
- He reports that his HR at home when not experiences the episodes of tachyarrhythmia is between 55-65.
- electrolytes within normal limits, and he denies EtOH use
Plan:
- admit to IVU
- consult cardiology
- check echocardiogram
- continue dofetilide 250mg bid
- continue metoprolol tartrate 25mg tid
- continue apixaban 5mg bid
Chronic issues:
PMH prostate cancer s/p prostatectomy
- follows at [facility]
- will be undergoing further imaging and possible additional radiation due to a rising PSA
Klippel-Feil syndrome
- chronic; solitary kidney per chart review
- reports neck/left armpit soreness, may be attributed to this condition
- monitor symptoms
Diet: regular
Full Code
DVTppx: apixaban
[2025-08-29 12:54] LABS: TSH 3.79 uIU/ml (0.47-4.68)
--- NOTE | 2025-08-29 15:20 | PTCARENOTE ---
Addendum entered by Negrita Samuels RN 08/29/25 15:42:
In addition, heart rhythm goes in and out of Afib.
Original Note:
Received the patient from the ED in a stretcher. The patient is aaox3, his vital signs are stable. Sinus tach vs aflutter 2:1 is noted on the monitor with a HR of 106. He has no complaints of pain, sob, or dizziness. I oriented him to his room. His
call mandel is within reach. His family is at the bedside.
[2025-08-29] MEDS: LOPRESSOR 25 MG PO (16:50)
--- NOTE | 2025-08-29 19:28 | CON.CAR ---
Consultation
Consultation Request
Date/Time Consultation Requested: 08/29/2025 at 1600
Date/Time Consultation Performed: 08/29/2025 at 1900
Requesting Provider: Dr. Gonzales
Performing Provider: Shamar Gloria MD
Reason for Consultation: Atrial tachycardia/paroxysmal atrial fibrillation
Medical History
-
Chief Complaint: Palpitations
History of Present Illness:
Pleasant 70-year-old man with a history of ASD repair at the [facility] in 1972, with history of SVT and atrial flutter and atrial fibrillation, has undergone ablations by Dr. Walter in 2017, 2018 and 2020. Previously on sotalol, and after recurrences
of atrial arrhythmia this year was started on dofetilide 250 mcg twice daily. Thereafter he did reasonably well but presented to our office on August 17 with increased episodes of tachycardia. A monitor revealed runs of atrial tachycardia up to
30 minutes in length. Metoprolol was uptitrated and he was continued on dofetilide. It was discussed that we could consider uptitration of dofetilide to 500 mcg twice daily. However, he had increasing palpitations and presented to the emergency
department. He is now admitted for further evaluation. Shortly after admission an electrocardiogram was obtained showing atrial fibrillation with a controlled ventricular response. He has some fatigue on metoprolol.
Past Medical History
Past Medical History: Arrhythmias (Atrial fibrillation and flutter, status post ablations 2017, 2018 and 2020 subsequently recurrences managed with sotalol and more recently dofetilide since November 2024), Hypothyroidism and Other (History of ASD
repair, persistent left superior vena cava, solitary kidney, Klippel-Feil syndrome, prostate cancer)
Past Surgical History: Urological (Left orchiectomy, prostatectomy, prior TURP) and Other (Herniorrhaphy)
Social History
Tobacco: Non-Smoker
Alcohol: None
Drug: None
Personal: (Son Nick is a nurse at [employer] [facility] and emergency department)
Living: With Family
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
Family History
Family History: Reviewed & Not Pertinent
Allergies / Home Medications
Allergy/AdvReac Type Severity Reaction Status Date / Time
cat dander Allergy DIFFICULTY Verified 08/29/25 09:36
BREATHING
erythromycin base Allergy Rash Verified 08/29/25 09:36
mold Allergy DIFFICULTY Verified 08/29/25 09:36
BREATHING
�Medication �Instructions �Recorded �Confirmed �Type
vitamin B complex 1 tab PO DAILY Supplement 09/21/16 08/29/25 History
apixaban 5 mg tablet (Eliquis) 5 mg PO BID #60 tabs 01/04/21 08/29/25 Rx
cholecalciferol (vitamin D3) 25 1,000 unit PO DAILY Supplement 02/14/21 08/29/25 History
mcg (1,000 unit) capsule (Vitamin
D3)
Total Restore 1 cap PO BID Supplement 11/20/24 08/29/25 History
dofetilide 250 mcg capsule 250 mcg PO Q12H #60 caps 12/22/24 08/29/25 Rx
ascorbic acid 30 mg-collagen, 1 tab PO BID 01/08/25 08/29/25 History
hydrolyzed 833.3 mg tablet
(Collagen Skin Renewal)
ashwagandha extract 120 mg capsule 120 mg PO DAILY 01/08/25 08/29/25 History
metoprolol tartrate 25 mg tablet 25 mg PO TID 08/29/25 08/29/25 History
Review of Systems
-
All other systems: Negative unless noted
Physical Exam
Vital Signs
Temp Pulse Resp BP Pulse Ox
36.4 C 91 16 124/71 99
08/29/25 18:46 08/29/25 18:46 08/29/25 18:46 08/29/25 14:46 08/29/25 18:46
Lab Results
08/29/25 09:52
08/29/25 09:52
Troponin I < 0.012 ng/ml 08/29/25 09:52
Physical Exam
General: No Apparent Distress
HEENT: Normocephalic
Respiratory: Clear
Cardiac: Irregular Rhythm and Other (No obvious murmurs)
GI: Non Tender and Non Distended
Musculoskeletal: No Edema
Skin: Warm and Dry
Neuro: AO x 3
Psych: Calm
Impression / Plan
-
Impression:
Paroxysmal atrial fibrillation/atrial tachycardia/atypical atrial flutter
History of ASD closure at [facility] 1972 with Grzegorz patch
Persistent left superior vena cava
Solitary right kidney
Raynaud's
Klippel-Feil
Prostatectomy for cancer
Fatigue metoprolol
Echocardiogram 11/24/2024: EF 50-55%, paradoxical septal motion, normal RV, normal left atrium with ASD repair, normal right atrium with ASD repair, mild mitral regurgitation aortic sclerosis with trace regurgitation, mild tricuspid regurgitation with
normal pulmonary artery systolic pressure, dilated coronary sinus with known persistent left superior vena cava
Plan:
He presents with episodes of atrial tachycardia, possibly atypical atrial flutter with 2-1 conduction and recurrent paroxysmal atrial fibrillation following 3 ablations most recently in 2020, now symptomatic despite dofetilide.
We will admit for uptitration of dofetilide to 500 mcg twice daily.
Better rate control might help, particularly if his underlying rhythm is atypical atrial flutter rather than atrial tachycardia. He has fatigue metoprolol, Nebivolol is nonformulary but we will try to obtain and start 20 mg daily if feasible.
Currently, he is not anticoagulated given [id number] score of 1, but in the setting of atrial fibrillation and attempts to maintain sinus rhythm, will add Eliquis.
Ultimately, patient may require additional ablations, but would be at risk for pacemaker implantation
Otherwise, no active cardiac issues at present. We will repeat his EKG.
Data Reviewed
-
EKG: Tracing Personally Visualized and interpreted (ECG #1, atrial tach with one-to-one conduction versus atypical atrial flutter with 2 1 conduction, left anterior fascicular block, incomplete right bundle branch block, QTc okay ECG #2 atrial
fibrillation with controlled ventricular response)
Radiology: Image Personally Visualized and interpreted (No active disease)
Medical Tests (Nuc Med, Echo etc): Report Reviewed by me
Labs: Labs Reviewed by me (White count 5.8, hemoglobin 13.7, BUN and creatinine 21 and 1.0, GFR greater than 60, troponin detectable)
Old Records: Reviewed
[2025-08-29] MEDS: ELIQUIS 5 MG PO (20:27)
[2025-08-29] MEDS: TIKOSYN 500 MCG PO (20:28)
[2025-08-29] MEDS: TOPROL XL 50 MG PO (20:28)
[2025-08-30] VITALS (7 sets, daily range): BP systolic 94–127; BP diastolic 64–87
[2025-08-30] MEDS: XANAX 0.25 MG PO (00:53)
--- NOTE | 2025-08-30 02:04 | PTCARENOTE ---
Received pt from day shift, ST and in/out Afib on the monitor. Pt's VSS, first increased dose of Tikosyn given around 20:30. EKG showed Sinus Tach with QTC of 522, cardiology notified and said to hold Tikosyn until they come around in the early AM
to assess the pt. Will pass on to day shift to hold until cardiology sees pt. Cardiology gave order for EKG in the AM. Around 00:45, pt rang and was feeling anxious and said he thinks he was having a 'panic attack'. 2L O2 applied and advised pt
to take deep breaths and RN would ask for order for xanax as pt has taken this in the past with relief. Pt given xanax and told to contact nursing if he was still feeling really anxious. Pt verbalized understanding and has the call mandel. Will
continue to monitor for any worsening anxiety issues.
[2025-08-30 05:07] LABS: INR 1.31; PT 16.5 Sec (11.4-14.6)
[2025-08-30 05:08] LABS: APTT 33.7 Sec (23.4-35.0)
[2025-08-30 05:27] LABS: ALT (SGPT) 26 U/L (0-50); AST (SGOT) 20 U/L (17-59); Albumin 3.9 g/dl (3.5-5.0); Alkaline Phosphatase 80 U/L (38-126); Blood Urea Nitrogen 16 mg/dl (9-20); Calcium 8.9 mg/dl (8.4-10.2); Carbon Dioxide 25 mmol/L (22-30); Chloride 108 mmol/L (98-107); Estimated Creatinine Clearance 80 ml/min; Glucose 98 mg/dl (70-99); Magnesium 2.0 mg/dl (1.6-2.3); Potassium 4.1 mmol/L (3.5-5.1); Sodium 137 mmol/L (135-145); Total Protein 6.7 g/dl (6.3-8.2); eGFR > 60.00
[2025-08-30 05:28] LABS: Hematocrit 39.7 % (39.0-52.0); Hemoglobin 13.4 g/dL (13.0-18.0); Mean Corp Hgb Conc. 33.8 g/dL (33.0-37.0); Mean Corpuscular Volume 91.3 fL (80.0-94.0); Platelet Count 157 10^3/uL (130-400); Red Cell Dist. Width 11.9 % (11.5-14.5)
--- NOTE | 2025-08-30 07:38 | W.PN.HOSP.TC ---
Today's Communication/Plan
-
- uptitration of medications per cardiology
- echocardiogram
- f/u recommendations
Assessment / Plan
Assessment / Plan
In summary, 70 yo M PMH recurrent atrial arrhythmias s/p multiple ablations and cardioversion, ASD repair in 2013, persistent LSVC presenting with palpitations, fatigue, and tachycardia currently most concerning for atrial arrhythmia: atrial
fibrillation w/wo RVR; atrial flutter.
Possible atrial fibrillation, likely paroxysmal vs. atrial flutter vs. other atrial arrhythmia
PMH atrial arrhythmias s/p multiple cardioversions and ablations
- EKG atrial fibrillation draft read; physical exam for me has irregular pulse
- HR 90-100s
- trigger is likely related to extensive cardioversion/ablation and ASD repair with congenital persistent LSVC which probably predisposes to arrhythmias.
- trigger could be psychosocial because he went a drive to [place] the day before last and then reported managing his finances with son (he says he gets stressed while doing that)
- electrolytes continue to remain within normal limits, and he denies EtOH use
Plan:
- uptitration per cardiology
- cardiology increased dofetilide 500mg bid, and metoprolol 50mg tid; contemplating changing metoprolol to nebivolol vs. ablation vs. pacemaker
- check echocardiogram
- continue apixaban 5mg bid
Chronic issues:
PMH prostate cancer s/p prostatectomy
- follows at [place]
- will be undergoing further imaging and possible additional radiation due to a rising PSA
Klippel-Feil syndrome
- chronic; solitary kidney per chart review
- reports neck/left armpit soreness, may be attributed to this condition
Diet: regular
Bowel regimen: metamucil daily
Full Code
DVTppx: apixaban
Anticipated Discharge: 24 - 48 hours
Subjective/Interval History
-
Date of Service: August 30, 2025
feels okay this morning
cardiology increased dofetilide and metoprolol
HR 90-100s, pulse still looks iregular to me
Objective Data
-
Labs:
Laboratory Results
08/30/25 08/30/25
04:46 04:47
WBC 5.8
Hgb 13.4
Hct 39.7
Plt Count 157
PT 16.5 H
INR 1.31
APTT 33.7
Sodium 137
Potassium 4.1
Chloride 108 H
Carbon Dioxide 25
BUN 16
Creatinine 0.9
Glucose 98
Calcium 8.9
Total Bilirubin 0.9
AST 20
ALT 26
Alkaline Phosphatase 80
Cr 0.9
Vital Signs:
Vital Signs
Temp Pulse Resp BP Pulse Ox
97.8 F 92 20 108/64 98
08/30/25 04:33 08/30/25 05:00 08/30/25 04:33 08/30/25 04:36 08/30/25 04:33
Review of Systems
-
History Source: Patient
Constitutional: Reports No Symptoms
EENT: Reports No Symptoms Reported
Respiratory: Reports No Symptoms
Cardiac: Reports Palpitations
Abdomen/GI: Reports No Symptoms
Genitourinary: Reports No Symptoms
Musculoskeletal: Reports No Symptoms
Neuro: Reports No Symptoms
Physical Exam
-
General: Conversant
HEENT: Normocephalic
Respiratory: Clear to Auscultation
Cardiac: Irregular Rhythm and Other (no murmurs on my exam)
GI: Soft, Nontender and Normal Bowel Sounds
Musculoskeletal: No Edema
Neuro: Awake, Alert, No Motor Deficits and Nonfocal/Grossly Intact
Psych: Calm
[2025-08-30] MEDS: TOPROL XL 50 MG PO ×2 (08:14→20:05)
[2025-08-30] MEDS: ELIQUIS 5 MG PO ×2 (08:14→20:05)
--- NOTE | 2025-08-30 08:37 | W.PN.CARDCBS ---
Addendum entered and electronically signed by Ro Baires DO 08/31/25 01:22:
I saw and examined the patient.
The [employer] note was reviewed and I agree with the note.
Comment: Patient was seen and examined sitting out of bed to chair. Offers no new complaints.
GEN: NAD. RA
HEENT: mmm
LUNGS: CTA B/L, no wheezes/rales
CV: irreg, S1/S2, 2/6 SM
EXT: No edema
NEURO: Gross non-focal
Plan:
Recurrent symptomatic atrial fibrillation on chronic Tikosyn therapy and Eliquis anticoagulation
- Admitted for uptitration of Tikosyn to 500 mcg twice daily however QTc is prolonged after 2nd dose of Tikosyn this morning. Plan discussed with patient's dental appliance repairer: Will reduce Tikosyn tonight to 250 mcg and continue QTc monitoring
through EKG protocol. If QTc is stable, will try to increase to 375 mcg twice daily 08/31
-Continue metoprolol succinate 50 mg twice daily, this was previously increased due to elevated rates in atrial fibrillation.
-2D echocardiogram with EF 50-55% with mildly reduced RV systolic function. Aortic sclerosis with trace AI, mild to moderate MR. Moderate TR with estimated pulmonary artery pressure 20 mmHg. No pericardial effusion. Patient has a dilated
coronary sinus with known persistent left SVC and a prior history of an ASD patch repair with no residual flow by color-flow Doppler.
- Plan for DC cardioversion prior to discharge if he remains in atrial fibrillation
- Follow lab work. Potassium and magnesium stable.
Addendum entered and electronically signed by Ana Angel PA-C 08/30/25 14:15:
Spoke with Dr. Del Castillo. QTc prolonged to 532 ms after 2nd dose of Tikosyn 500 mcg this AM. Will give patient 250 mcg tonight and if QTc improved in AM, will try to increase dose to 375 mcg BID starting in AM 08/31/2025.
Original Note:
Today's Communication / Plan
-
Continue higher dose Tikosyn
Continue Toprol 50mg BID
Continue Eliquis
Follow QTc.
Check echo
Impression / Plan
-
Freelance Patternmaker: Dr. Abundio Young
Impression:
Atrial flutter/atrial fibrillation
Intolerance to Sotalol
h/o ablations in 2017, 2018 and 2020 at [facility]
Chronic Tikosyn therapy
s/p Grzegorz patch repair of ASD in 1972
Solitary kidney
Klippel-Feil syndrome
Prostate cancer s/p prostatectomy 2022
Left orchiectomy
Hernia repair 2006
Prior TURP
Echo 11/24/2024: EF 50 to 55%, ASD repair without evidence of shunt, mild MR, dilated coronary sinus with known persistent left superior vena cava, study similar to February 2021.
Echo 08/30/2025: Study pending
Plan:
-Presented with episode of recurrent atrial fibrillation despite chronic Tikosyn therapy.
-Admitted for uptitration of Tikosyn to 500 mcg BID.
-Remains in afib on tele. HRs overall stable.
-QTc stable at 487 ms in AM 08/30. Continue to follow.
-Continue Toprol 50mg BID for additional rate control.
-Continue Eliquis 5mg BID for anticoagulation.
-K and mag stable. TSH within normal limits.
-Echo pending this AM. Await results.
Progress Note - Freelance Patternmaker
Subjective
Date of Service: August 30, 2025
Anxious overnight, but felt better after getting alprazolam.
Objective
Labs:
08/30/25 04:46
08/30/25 04:46
Labs
Hgb 13.4 g/dL (13.0-18.0) 08/30/25 04:46
Hct 39.7 % (39.0-52.0) 08/30/25 04:46
Plt Count 157 10^3/uL (130-400) 08/30/25 04:46
PT 16.5 Sec (11.4-14.6) H 08/30/25 04:47
INR 1.31 08/30/25 04:47
APTT 33.7 Sec (23.4-35.0) 08/30/25 04:47
Sodium 137 mmol/L (135-145) 08/30/25 04:46
Potassium 4.1 mmol/L (3.5-5.1) 08/30/25 04:46
BUN 16 mg/dl (9-20) 08/30/25 04:46
Creatinine 0.9 mg/dL (0.7-1.3) 08/30/25 04:46
Glucose 98 mg/dl (70-99) 08/30/25 04:46
Troponins
08/29/25
09:52
Troponin I < 0.012
Vital Signs and I&O:
Vital Signs
Temp Pulse Resp BP Pulse Ox
97.8 F 93 20 127/87 98
08/30/25 04:33 08/30/25 08:14 08/30/25 04:33 08/30/25 08:14 08/30/25 04:33
Vital Signs
Temp Pulse Resp BP Pulse Ox
97.8 F 93 20 127/87 98
08/30/25 04:33 08/30/25 08:14 08/30/25 04:33 08/30/25 08:14 08/30/25 04:33
Physical Exam
Physical Exam
GEN: No distress, awake, alert, oriented x3. sitting in chair
HEENT: supple, anicteric, mmm
LUNGS: CTA B/L, no wheezes/rales
CV: irreg, S1/S2, no murmur
EXT: No cyanosis, clubbing, edema
NEURO: Gross non-focal
SKIN: Warm, pink, dry. No rash
--- NOTE | 2025-08-30 08:37 | PTCARENOTE ---
Assumed care. Patient AO x3, pleasant. A-fib HR 94, VSS. Denies pain or shortness of breath. Walking to the bathroom independently, call mandel in reach
[2025-08-30] MEDS: TIKOSYN 500 MCG PO (09:28)
[2025-08-30] MEDS: METAMUCIL, KONSYL 1 PACKET PO (10:11)
--- NOTE | 2025-08-30 11:27 | CM ---
Reviewed chart. Met with Mr. Fernandez to review discharge plans. He states prior to admission he resides with his spouse in a two story home with two steps to enter. He states he has a full flight of steps tp get to bedroom/full bathroom. He states he
has a powder room on the first floor. He states prior to admission he was independent with ambulation and adls. He states he does not have any DME in the home. He states he has a prescription plan and uses [facility]. Medical work-up in
progress. The discharge plan is to return home with his spouse when medically stable.
[2025-08-30 19:26] LABS: Hepatitis C Antibody Negative (Negative)
--- NOTE | 2025-08-30 20:00 | PTCARENOTE ---
Assumed care of patient at change of shift. AAOx3, VSS. Patient denies any complaints, ambulating in room. Plan of care discussed, call mandel within reach.
[2025-08-30] MEDS: TIKOSYN 250 MCG PO (20:05)
--- NOTE | 2025-08-30 20:50 | PTCARENOTE ---
Addendum entered by Salima Hernandez RN 08/30/25 22:46:
QTc 482 (2 hours post Tikosyn)
Original Note:
Tikosyn dose #3 given at 2009, EKG ordered for 2209.
[2025-08-31 02:09] VITALS: BP 124/82
[2025-08-31 02:25] LABS: Hematocrit 39.7 % (39.0-52.0); Hemoglobin 13.5 g/dL (13.0-18.0); Mean Corp Hgb Conc. 34.0 g/dL (33.0-37.0); Mean Corpuscular Volume 91.7 fL (80.0-94.0); Platelet Count 132 10^3/uL (130-400); Red Cell Dist. Width 12.0 % (11.5-14.5)
[2025-08-31 02:44] LABS: Blood Urea Nitrogen 21 mg/dl (9-20); Calcium 9.2 mg/dl (8.4-10.2); Carbon Dioxide 27 mmol/L (22-30); Chloride 107 mmol/L (98-107); Estimated Creatinine Clearance 72 ml/min; Glucose 98 mg/dl (70-99); Potassium 4.3 mmol/L (3.5-5.1); Sodium 138 mmol/L (135-145); eGFR > 60.00
--- NOTE | 2025-08-31 07:21 | W.PN.HOSP.TC ---
Today's Communication/Plan
-
- monitor QTc
- monitor electrolytes
- adjust medications as per cardiology
- f/u cardiology recommendations
Assessment / Plan
Assessment / Plan
In summary, 70 yo M PMH recurrent atrial arrhythmias s/p multiple ablations and cardioversion, ASD repair in 2012, persistent LSVC presenting with palpitations, fatigue, and tachycardia currently most concerning for atrial arrhythmia: atrial
fibrillation w/wo RVR; atrial flutter.
Possible atrial fibrillation, likely paroxysmal vs. atrial flutter vs. other atrial arrhythmia
PMH atrial arrhythmias s/p multiple cardioversions and ablations
- HR 90-100s
- trigger is likely related to extensive cardioversion/ablation and ASD repair with congenital persistent LSVC which probably predisposes to arrhythmias.
- trigger could be psychosocial because he went a drive to [place] the day before last and then reported managing his finances with son (he says he gets stressed while doing that)
- electrolytes continue to remain within normal limits, and he denies EtOH use
- echo was largely unremarkable outside of repairs/congenital variants: EF 50-55%
Plan:
- per cardiology, uptitration of dofetilide is limited by the patient's QTc prolongation. He is currently back on dofetilide 250mg bid and metoprolol succinate 50mg bid.
- EKG to monitor QTc, per cardiology, will try dofetilide 375mg bid today
- may plan for cardioversion
- continue apixaban 5mg bid
- ensure K > 4, Mg > 2
Chronic issues:
PMH prostate cancer s/p prostatectomy
- follows at [facility]
- will be undergoing further imaging and possible additional radiation due to a rising PSA
Klippel-Feil syndrome
- chronic; solitary kidney per chart review
- reports neck/left armpit soreness, may be attributed to this condition
Diet: regular
Bowel regimen: metamucil daily
Full Code
DVTppx: apixaban
Anticipated Discharge: > 48 hours
Subjective/Interval History
-
Date of Service: August 31, 2025
feels okay
Objective Data
-
Labs:
Laboratory Results
08/31/25
02:16
WBC 6.2
Hgb 13.5
Hct 39.7
Plt Count 132
Sodium 138
Potassium 4.3
Chloride 107
Carbon Dioxide 27
BUN 21 H
Creatinine 1.0
Glucose 98
Calcium 9.2
Echocardiogram 08/30/2025
SUMMARY
1. Ejection fraction is 50-55% by visual assessment.
2. Normal left ventricular size, wall thickness and systolic function. No regional wall motion abnormalities are seen.
3. Compared to a prior transthoracic echocardiogram study from November 2024 no significant changes are seen.
4. Dilated coronary sinus with known persistent left superior vena cava.
5. Known atrial septal defect patch repair with no residual blood flow seen by color doppler.
6. Mild to moderate mitral valve regurgitation.
7. Moderate tricuspid regurgitation. Estimated pulmonary artery pressure of 28 mmHg assuming a right atrial pressure of 3 mmHg.
Vital Signs:
Vital Signs
Temp Pulse Resp BP Pulse Ox
97.7 F 105 16 124/82 99
08/31/25 02:20 08/31/25 02:20 08/31/25 02:20 08/31/25 02:09 08/31/25 02:20
HR was in 100s and then 90s this morning
I&O
08/30/25 08/31/25 09/01/25
06:59 06:59 06:59
Intake Total 120 / 120
Balance 120 / 120
Review of Systems
-
History Source: Patient
Constitutional: Reports No Symptoms
EENT: Reports No Symptoms Reported
Respiratory: Reports No Symptoms
Cardiac: Reports Palpitations
Abdomen/GI: Reports No Symptoms
Genitourinary: Reports No Symptoms
Musculoskeletal: Reports No Symptoms
Neuro: Reports No Symptoms
Physical Exam
-
General: Conversant
HEENT: Normocephalic
Respiratory: Clear to Auscultation
Cardiac: Irregular Rhythm and Other (no murmurs on my exam)
GI: Soft, Nontender and Normal Bowel Sounds
Musculoskeletal: No Edema
Neuro: Awake, Alert, No Motor Deficits and Nonfocal/Grossly Intact
Psych: Calm
[2025-08-31 07:50] VITALS: BP 121/69
[2025-08-31 08:32] LABS: Magnesium 2.0 mg/dl (1.6-2.3)
[2025-08-31] MEDS: ELIQUIS 5 MG PO ×2 (08:46→20:06)
[2025-08-31] MEDS: TOPROL XL 50 MG PO ×2 (08:46→20:06)
[2025-08-31] MEDS: METAMUCIL, KONSYL 1 PACKET PO (08:46)
[2025-08-31] MEDS: TIKOSYN 250 MCG PO ×2 (09:04→20:06)
[2025-08-31] MEDS: TIKOSYN 125 MCG PO ×2 (09:05→20:06)
--- NOTE | 2025-08-31 10:19 | CM ---
Reviewed chart. Met with Mr. Fernandez to review discharge plans. He states he is feeling well. ans. Prior to admission he resides with his spouse in a two story home with two steps to enter. He has a full flight of steps tp get to bedroom/full
bathroom. He has a powder room on the first floor. Prior to admission he was independent with ambulation and adls. He does not have any DME in the home. He has a prescription plan and uses [facility]. Medical work-up in progress. The
discharge plan is to return home with his spouse when medically stable.
--- NOTE | 2025-08-31 12:35 | PTCARENOTE ---
QTc 507. Notified Natasha Samuels. Continue with Tikosyn 375 mcg as ordered
--- NOTE | 2025-08-31 12:39 | W.PN.CARDCBS ---
Today's Communication / Plan
-
Up titration of Tikosyn for recurrent symptomatic atrial fibrillation
Post Tikosyn dose EKG/telemetry protocol
DC cardioversion 09/01 if patient remains in atrial fibrillation
Impression / Plan
-
Consumer Credit Counselor: Dr. Abundio Young
Impression:
Atrial flutter/atrial fibrillation
Intolerance to Sotalol
h/o ablations in 2017, 2018 and 2020 at [facility]
Chronic Tikosyn therapy
s/p Grzegorz patch repair of ASD in 1972
Solitary kidney
Klippel-Feil syndrome
Prostate cancer s/p prostatectomy 2022
Left orchiectomy
Hernia repair 2006
Prior TURP
Echo 11/24/2024: EF 50 to 55%, ASD repair without evidence of shunt, mild MR, dilated coronary sinus with known persistent left superior vena cava, study similar to February 2021.
Echo 08/30/2025: Study pending
Plan:
Recurrent symptomatic atrial fibrillation on chronic Tikosyn therapy and Eliquis anticoagulation
- Admitted for uptitration of Tikosyn to 500 mcg twice daily however QTc is prolonged after 2nd dose of Tikosyn this morning. Plan discussed with patient's noc analyst: Will reduce Tikosyn tonight to 250 mcg and continue QTc monitoring
through EKG protocol. If QTc is stable, will try to increase to 375 mcg twice daily 08/31
-Continue metoprolol succinate 50 mg twice daily, this was previously increased due to elevated rates in atrial fibrillation.
-2D echocardiogram with EF 50-55% with mildly reduced RV systolic function. Aortic sclerosis with trace AI, mild to moderate MR. Moderate TR with estimated pulmonary artery pressure 20 mmHg. No pericardial effusion. Patient has a dilated
coronary sinus with known persistent left SVC and a prior history of an ASD patch repair with no residual flow by color-flow Doppler.
-Lab work today: Sodium 138, Tessman 4.3, BUN/creatinine 21/1. Magnesium 2.
- Plan for DC cardioversion 09/01, if he remains in atrial fibrillation
Progress Note - Consumer Credit Counselor
Subjective
Date of Service: August 31, 2025
Patient seen and examined offering no new complaints
Objective
Labs:
08/31/25 02:16
08/31/25 02:16
Labs
Hgb 13.5 g/dL (13.0-18.0) 08/31/25 02:16
Hct 39.7 % (39.0-52.0) 08/31/25 02:16
Plt Count 132 10^3/uL (130-400) 08/31/25 02:16
PT 16.5 Sec (11.4-14.6) H 08/30/25 04:47
INR 1.31 08/30/25 04:47
APTT 33.7 Sec (23.4-35.0) 08/30/25 04:47
Sodium 138 mmol/L (135-145) 08/31/25 02:16
Potassium 4.3 mmol/L (3.5-5.1) 08/31/25 02:16
BUN 21 mg/dl (9-20) H 08/31/25 02:16
Creatinine 1.0 mg/dL (0.7-1.3) 08/31/25 02:16
Glucose 98 mg/dl (70-99) 08/31/25 02:16
Troponins
08/29/25
09:52
Troponin I < 0.012
Vital Signs and I&O:
Vital Signs
Temp Pulse Resp BP Pulse Ox
97.7 F 91 16 121/69 99
08/31/25 07:48 08/31/25 10:00 08/31/25 07:48 08/31/25 07:50 08/31/25 07:48
Vital Signs
Temp Pulse Resp BP Pulse Ox
97.7 F 91 16 121/69 99
08/31/25 07:48 08/31/25 10:00 08/31/25 07:48 08/31/25 07:50 08/31/25 07:48
Intake & Output
08/29/25 08/30/25 08/31/25 09/01/25
06:59 06:59 06:59 06:59
Intake Total 120 / 120
Balance 120 / 120
Physical Exam
Physical Exam
GEN: NAD. RA
HEENT: mmm
LUNGS: CTA B/L, no wheezes/rales
CV: irreg, S1/S2, 2/6 SM
EXT: No edema
NEURO: Gross non-focal
[2025-08-31 16:25] VITALS: BP 121/72
[2025-08-31 18:45] VITALS: BP 127/62
[2025-08-31 20:06] VITALS: BP 118/73
--- NOTE | 2025-08-31 22:21 | PTCARENOTE ---
Patient given Tikosyn dose #5 at 2009. EKG completed at 2210, QTc - 507.
[2025-09-01 03:59] VITALS: BP 99/74
[2025-09-01 04:43] LABS: Hematocrit 37.0 % (39.0-52.0); Hemoglobin 12.8 g/dL (13.0-18.0); Mean Corp Hgb Conc. 34.6 g/dL (33.0-37.0); Mean Corpuscular Volume 92.0 fL (80.0-94.0); Platelet Count 140 10^3/uL (130-400); Red Cell Dist. Width 11.8 % (11.5-14.5)
[2025-09-01 05:01] LABS: Blood Urea Nitrogen 17 mg/dl (9-20); Calcium 8.6 mg/dl (8.4-10.2); Carbon Dioxide 26 mmol/L (22-30); Chloride 106 mmol/L (98-107); Estimated Creatinine Clearance 72 ml/min; Glucose 88 mg/dl (70-99); Magnesium 2.0 mg/dl (1.6-2.3); Potassium 4.2 mmol/L (3.5-5.1); Sodium 137 mmol/L (135-145); eGFR > 60.00
[2025-09-01 07:42] VITALS: BP 107/75; BP 82/72
--- NOTE | 2025-09-01 07:47 | W.PN.HOSP.TC ---
Today's Communication/Plan
-
- possible cardioversion today
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
-
Assessment / Plan
Assessment / Plan
In summary, 70 yo M PMH recurrent atrial arrhythmias s/p multiple ablations and cardioversion, ASD repair in 2012, persistent LSVC presenting with palpitations, fatigue, and tachycardia currently most concerning for atrial arrhythmia: atrial
fibrillation w/wo RVR; atrial flutter.
Possible atrial fibrillation, likely paroxysmal vs. atrial flutter vs. other atrial arrhythmia
PMH atrial arrhythmias s/p multiple cardioversions and ablations
- HR 90-100s
- trigger is likely related to extensive cardioversion/ablation and ASD repair with congenital persistent LSVC which probably predisposes to arrhythmias.
- trigger could be psychosocial because he went a drive to [place] the day before last and then reported managing his finances with son (he says he gets stressed while doing that)
- electrolytes continue to remain within normal limits, and he denies EtOH use
- echo was largely unremarkable outside of repairs/congenital variants: EF 50-55%
Plan:
- per cardiology, dofetilide 375mg bid, metoprolol succinate 50mg bid
- EKG last QTcB 507
- per cardiology, cardioversion possibly today
- continue apixaban 5mg bid
- ensure K > 4, Mg > 2
Chronic issues:
PMH prostate cancer s/p prostatectomy
- follows at [facility]
- will be undergoing further imaging and possible additional radiation due to a rising PSA
Klippel-Feil syndrome
- chronic; solitary kidney per chart review
- reports neck/left armpit soreness, may be attributed to this condition
Diet: regular
Bowel regimen: metamucil daily
Full Code
DVTppx: apixaban
Anticipated Discharge: Within 24 hours
Subjective/Interval History
-
Date of Service: September 01, 2025
feels that he still has palpitations
Objective Data
-
Labs:
Laboratory Results
09/01/25
04:04
WBC 5.6
Hgb 12.8 L
Hct 37.0 L
Plt Count 140
Sodium 137
Potassium 4.2
Chloride 106
Carbon Dioxide 26
BUN 17
Creatinine 1.0
Glucose 88
Calcium 8.6
Cr 1.0
K 4.2
Mg 2.0
Vital Signs:
Vital Signs
Temp Pulse Resp BP Pulse Ox
97.9 F 112 20 99/74 94
09/01/25 07:44 09/01/25 04:00 09/01/25 07:44 09/01/25 03:59 09/01/25 07:44
90-110s
I&O
08/31/25 09/01/25 09/02/25
06:59 06:59 06:59
Intake Total 120 / 120
Balance 120 / 120
Review of Systems
-
History Source: Patient
Constitutional: Reports No Symptoms
EENT: Reports No Symptoms Reported
Respiratory: Reports No Symptoms
Cardiac: Reports Palpitations
Abdomen/GI: Reports No Symptoms
Genitourinary: Reports No Symptoms
Musculoskeletal: Reports No Symptoms
Neuro: Reports No Symptoms
Physical Exam
-
General: Conversant
HEENT: Normocephalic
Respiratory: Clear to Auscultation
Cardiac: Irregular Rhythm and Other (no murmurs on my exam)
GI: Soft, Nontender and Normal Bowel Sounds
Musculoskeletal: No Edema
Skin: Other (varicose veins on right leg)
Neuro: Awake, Alert, No Motor Deficits and Nonfocal/Grossly Intact
Psych: Calm
[2025-09-01] MEDS: TIKOSYN 125 MCG PO (08:49)
[2025-09-01] MEDS: TIKOSYN 250 MCG PO (08:49)
[2025-09-01] MEDS: ELIQUIS 5 MG PO (08:50)
[2025-09-01] MEDS: TOPROL XL 50 MG PO (08:50)
[2025-09-01] MEDS: METAMUCIL, KONSYL PO (08:50)
[2025-09-01] MEDS: FLUSH (NSS) 1 FLUSH IV (08:51)
--- NOTE | 2025-09-01 08:54 | W.PN.CARDCBS ---
Addendum entered and electronically signed by Chan De León MD 09/01/25 13:03:
I saw and examined the patient.
The Research Physiologist's note was reviewed and I agree with the note.
Comment: Briefly, 70-year-old man past medical history of atrial fibrillation/flutter with multiple prior ablations who is chronically on Tikosyn and presented to ER with palpitations found to be in atrial fibrillation despite Tikosyn 250 mcg
twice daily.
Tikosyn dose has been uptitrated to 375 mcg twice daily
Patient underwent successful direct-current cardioversion earlier today
QTc remains stable
Continue prior metoprolol and was dosing
Tentative plan for discharge later today with outpatient EP follow-up
Original Note:
Today's Communication / Plan
-
For cardioversion today
Follow QTc in sinus rhythm
Likely for DC later today
Outpatient EP follow-up
Impression / Plan
-
Quill Layer: Dr. Abundio Young
Impression:
Atrial flutter/atrial fibrillation
Intolerance to Sotalol
h/o ablations in 2018, 2018 and 2020 at [facility]
Chronic Tikosyn therapy
s/p Grzegorz patch repair of ASD in 1972
Solitary kidney
Klippel-Feil syndrome
Prostate cancer s/p prostatectomy 2022
Left orchiectomy
Hernia repair 2006
Prior TURP
Echo 11/24/2024: EF 50 to 55%, ASD repair without evidence of shunt, mild MR, dilated coronary sinus with known persistent left superior vena cava, study similar to February 2021.
Echo 08/30/2025: EF 50 to 55%, dilated coronary sinus with known persistent left superior vena cava, known atrial septal defect patch repair with no residual blood flow, mild to moderate MR, moderate TR, PAP 28 mmHg
Plan:
-Patient presents with recurrent symptomatic atrial fibrillation on chronic Tikosyn therapy and Eliquis
-QTc prolonged on uptitration of Tikosyn to 500 mcg twice daily, so dose reduced to 375mcg Q12H and QTc stable but remains in arrhythmia.
-plan for CV today, hopefully successful
-continue toprol 50mg BID
-Continue Eliquis 5 mg twice daily
-echo 08/30 reviewed, no significant change compared to prior
-Patient and both report component of health-related anxiety due to his arrhythmia issues. Support provided. We discussed following up with PCP, and considering options of medications, therapy.
-will arrange OP EP follow up
-likely for DC later today
-d/w patient and at bedside
Progress Note - Quill Layer
Subjective
Date of Service: September 01, 2025
Reports palpitations. No chest pain, shortness of breath
Objective
Labs:
09/01/25 04:04
09/01/25 04:04
Labs
Hgb 12.8 g/dL (13.0-18.0) L 09/01/25 04:04
Hct 37.0 % (39.0-52.0) L 09/01/25 04:04
Plt Count 140 10^3/uL (130-400) 09/01/25 04:04
PT 16.5 Sec (11.4-14.6) H 08/30/25 04:47
INR 1.31 08/30/25 04:47
APTT 33.7 Sec (23.4-35.0) 08/30/25 04:47
Sodium 137 mmol/L (135-145) 09/01/25 04:04
Potassium 4.2 mmol/L (3.5-5.1) 09/01/25 04:04
BUN 17 mg/dl (9-20) 09/01/25 04:04
Creatinine 1.0 mg/dL (0.7-1.3) 09/01/25 04:04
Glucose 88 mg/dl (70-99) 09/01/25 04:04
Troponins
08/29/25
09:52
Troponin I < 0.012
Vital Signs and I&O:
Vital Signs
Temp Pulse Resp BP Pulse Ox
97.9 F 88 20 107/ 94
09/01/25 07:44 09/01/25 08:50 09/01/25 07:44 09/01/25 08:50 09/01/25 07:44
Vital Signs
Temp Pulse Resp BP Pulse Ox
97.9 F 88 20 107/ 94
09/01/25 07:44 09/01/25 08:50 09/01/25 07:44 09/01/25 08:50 09/01/25 07:44
Intake & Output
08/30/25 08/31/25 09/01/25 09/02/25
07:59 07:59 07:59 07:59
Intake Total 120 / 120
Balance 120 / 120
Physical Exam
Physical Exam
GEN: No distress, awake, alert, oriented x3. Sitting in chair
HEENT: supple, anicteric, mmm, EOMI
LUNGS: CTA bilaterally, no wheezes/rales
CV: Irreg, S1/S2, no murmur
ABD: soft, BS+, NT/ND
EXT: No cyanosis, clubbing, edema
NEURO: Gross non-focal
SKIN: Warm, pink, dry. No rash
--- NOTE | 2025-09-01 09:18 | CM ---
Reviewed chart. Met with and Most to review discharge plans. He states he is feeling well and maybe able to go home soon. Prior to admission he resides with his spouse in a two story home with two steps to enter. He has a full flight of
steps tp get to bedroom/full bathroom. He has a powder room on the first floor. Prior to admission he was independent with ambulation and adls. He does not have any DME in the home. He has a prescription plan and uses [facility]. Medical
work-up in progress. The discharge plan is to return home with his spouse when medically stable.
--- NOTE | 2025-09-01 10:23 | PTCARENOTE ---
received patient this am, remains NPO for CV this am. monitor shows Afib, VSS.
--- NOTE | 2025-09-01 11:16 | ITS.CL.CARDI ---
Scraper Tender - Cardioversion
Cardioversion
Procedure Report:
Date of Procedure: 09/01/2025.
Procedure: Cardioversion.
Indication: Symptomatic atrial fibrillation.
Performing Physician: Chen Haley MD
Technique: The patient was brought to the holding area. Signed informed consent was obtained. A time out was called and performed. The patient was sedated by a member of the anesthesia service. Anticoagulation status was reviewed and was
appropriate. R-2 pads were placed anteriorly and posteriorly. A 200 J synchronized biphasic shock restored Ectopic atrial rhythm without significant bradycardia. There were no complications.
Conclusion: Uncomplicated cardioversion from atrial fibrillation to ectopic atrial rhythm
Recommendation: Routine post cardioversion care. Continue fci anticoagulation.
kali De La Torre
[2025-09-01 11:33] VITALS: BP 109/76
--- NOTE | 2025-09-01 11:35 | PTCARENOTE ---
patient returned from CV, NSR, VSS. patient is sleepy, encouraged patient to rest, eat lunch then will be discharged today.
--- NOTE | 2025-09-01 11:38 | PTCARENOTE ---
patient decline flu shot, will obtain from primary doctor.
--- NOTE | 2025-09-01 13:45 | W.DCSUMMARY ---
Documented by User: Hardeep Gonzales MD, Resident 09/01/25 13:57
Discharge Summary
Discharge Data
Date of Admission: 08/29/25
Date of Discharge: 09/01/25
-
Pending Results: No
Hospital Course
Discharging Physician : Dr. Abhijit Read; Dr. Hardeep Gonzales
Disposition : Home
Primary care physician :
Principal Discharge diagnosis : recurrent atrial fibrillation
Chronic Discharge diagnosis : atrial arrhythmias s/p ablation, cardioversions (multiple); prostate cancer s/p prostatectomy; Klippel-Feil syndrome, persistent L SVC, solitary kidney
Hospital Course :
70 yo M PMH recurrent atrial arrhythmias s/p multiple ablations and cardioversion, ASD repair in 2012, persistent LSVC presenting with palpitations, fatigue, and tachycardia.
He takes dofetilide 250mg bid, metoprolol tartrate 25mg tid, and apixaban 5mg bid, and reports excellent adherence to medications. He reports that his cardiology was suggesting to increase his medication dosages at last appointment in/around
July 2025.
During this admission, dofetilide was increased but a concomitant increase in QTc was noted, prompting cardiology to select dofetilide 375mg bid and metoprolol succinate 50mg po bid, which he is to continue upon discharge.
On the day of discharge, he then underwent cardioversion that was successful with a resulting stable QTc.
The following problems were addressed during this admission.
Recurrent, symptomatic atrial fibrillation, likely paroxysmal vs. other atrial arrhythmia
PMH atrial arrhythmias s/p multiple cardioversions and ablations
- HR previously have been persistently in 90-100s
- trigger is likely related to extensive cardioversion/ablation and ASD repair with congenital persistent LSVC which probably predisposes to arrhythmias.
- trigger could be psychosocial because he went a drive to [place] the day before last and then reported managing his finances with son (he says he gets stressed while doing that)
- electrolytes continue to remain within normal limits, and he denies EtOH use
- echo was largely unremarkable outside of repairs/congenital variants: EF 50-55%
- per cardiology, dofetilide 375mg bid, metoprolol succinate 50mg bid
- underwent cardioversion on 09/01/2025
- EKG last QTcB 507
- continue apixaban 5mg bid
Chronic issues:
[facility] prostate cancer s/p prostatectomy
- follows at [facility]
- will be undergoing further imaging and possible additional radiation due to a rising PSA
Klippel-Feil syndrome
- chronic; solitary kidney per chart review
- reports neck/left armpit soreness, may be attributed to this condition
Important imaging findings :
08/29/2025 CXR
FINDINGS:
No focal consolidation, pleural effusion, or pneumothorax. Sternotomy wires. The cardiomediastinal silhouette is normal. Chronic degenerative changes of the spine.
IMPRESSION:
No acute cardiopulmonary process.
Procedure findings :
09/01/2025 Cardioversion
Indication: Symptomatic atrial fibrillation.
Performing Physician: Chen Haley MD
Technique: The patient was brought to the holding area. Signed informed consent was obtained. A time out was called and performed. The patient was sedated by a member of the anesthesia service. Anticoagulation status was reviewed and was
appropriate. R-2 pads were placed anteriorly and posteriorly. A 200 J synchronized biphasic shock restored Ectopic atrial rhythm without significant bradycardia. There were no complications.
Conclusion: Uncomplicated cardioversion from atrial fibrillation to ectopic atrial rhythm
Recommendation: Routine post cardioversion care. Continue manager intermediate anticoagulation.
Discharge Plan
-
Patient Disposition: Home (Routine Discharge)
Discharge Diagnosis/Procedures: Symptomatic paroxysmal AF with palpitations
Tikosyn uptitration
Condition: Fair
Diet: As tolerated
Activity: As tolerated
Driving Restrictions: No driving for 24 hours
Referrals:
Shamar Gloria MD [Family Provider, Family Practice]
Sayda Khanna CRNP [Specified Professional Personl, Cardiology] - 09/24/25 12:40 pm
Referral Note: You have a cardiology follow-up appointment at the [place] office with Dr. Del Castillo's nurse practitioner, Sayda. Please call with questions
Additional Discharge Medication Instructions: Please take dofetilide 250mcg and dofetilide 125 mcg for a total of 375 mcg every 12 hours
you should take metoprolol succinate 50mg bid
you should continue apixaban 5mg bid
Stop taking ashwagandha as it may cause fast cardiac arrhythmias
you can continue your other medications as below.
Please follow-up with cardiology on Sep 24, 2025 as listed above
Please follow-up with your PCP in 1 week.
Prescriptions:
New
metoprolol succinate 50 mg Tablet Extended Release 24 Hr
50 mg PO BID Qty: 60 5RF
dofetilide 125 mcg Capsule
125 mcg PO Q12 Qty: 60 11RF
Rx Instructions:
Please take with 250mcg tablet for total of 375mcg Q12H.
Continued
vitamin B complex 1 TAB tablet
1 tab PO DAILY
Eliquis 5 MG tablet
5 mg PO BID Qty: 60 3RF
cholecalciferol (vitamin D3) [Vitamin D3] 1,000 UNIT capsule
1,000 unit PO DAILY
Total Restore
1 cap PO BID
Collagen Skin Renewal 30-833.3 mg Tablet
1 tab PO BID
dofetilide 250 mcg Capsule
250 mcg PO Q12H Qty: 60 11RF
Rx Instructions:
Please take with 125mcg tablet for total of 375mcg Q12H.
Discontinued
ashwagandha extract 120 mg Capsule
120 mg PO DAILY
metoprolol tartrate 25 mg tablet
25 mg PO TID
Discharge Orders:
Discharge Patient (As Directed); Ordered 09/01/25
Ordered By: Hardeep Christian
Discharge Date and Time
Print Language: TURKISH

Documented by User: Abhijit Read DO 09/01/25 14:21
Discharge Summary
Discharge Data
Date of Admission: 08/29/25
Date of Discharge: 09/01/25
Total time spent discharging patient (in min): 34
Discharge Plan
-
Patient Disposition: Home (Routine Discharge)
Discharge Diagnosis/Procedures: Symptomatic paroxysmal AF with palpitations
Tikosyn uptitration
Condition: Fair
Diet: As tolerated
Activity: As tolerated
Driving Restrictions: No driving for 24 hours
Referrals:
Shamar Gloria MD [Family Provider, Family Practice]
Sayda Khanna CRNP [Specified Professional Personl, Cardiology] - 09/24/25 12:40 pm
Referral Note: You have a cardiology follow-up appointment at the [place] office with Dr. Del Castillo's nurse practitioner, Sayda. Please call with questions
Additional Discharge Medication Instructions: Please take dofetilide 250mcg and dofetilide 125 mcg for a total of 375 mcg every 12 hours
you should take metoprolol succinate 50mg bid
you should continue apixaban 5mg bid
Stop taking ashwagandha as it may cause fast cardiac arrhythmias
you can continue your other medications as below.
Please follow-up with cardiology on Sep 24, 2025 as listed above
Please follow-up with your PCP in 1 week.
Prescriptions:
New
metoprolol succinate 50 mg Tablet Extended Release 24 Hr
50 mg PO BID Qty: 60 5RF
dofetilide 125 mcg Capsule
125 mcg PO Q12 Qty: 60 11RF
Rx Instructions:
Please take with 250mcg tablet for total of 375mcg Q12H.
Continued
vitamin B complex 1 TAB tablet
1 tab PO DAILY
Eliquis 5 MG tablet
5 mg PO BID Qty: 60 3RF
cholecalciferol (vitamin D3) [Vitamin D3] 1,000 UNIT capsule
1,000 unit PO DAILY
Total Restore
1 cap PO BID
Collagen Skin Renewal 30-833.3 mg Tablet
1 tab PO BID
dofetilide 250 mcg Capsule
250 mcg PO Q12H Qty: 60 11RF
Rx Instructions:
Please take with 125mcg tablet for total of 375mcg Q12H.
Discontinued
ashwagandha extract 120 mg Capsule
120 mg PO DAILY
metoprolol tartrate 25 mg tablet
25 mg PO TID
Discharge Orders:
Discharge Patient (As Directed); Ordered 09/01/25
Ordered By: Hardeep Gonzales
Discharge Date and Time
Print Language: TURKISH
--- NOTE | 2025-09-01 14:41 | PTCARENOTE ---
D/C instructions given to patient and both verbalizes understanding. Tikosyn obtained from our pharmacy and given to patient. INT D/C'd, telemetry D/C'd, personal belongings packed and sent home with patient. D/C to home via wc accompanied by
staff.
== END 2025-09-01 14:43 | disposition home or self-care (01) | DRG 309 ==
LOC: IVU 13:01
PROVIDERS: Internal Medicine Cardiovascular Disease; ADMITTING PHYSICIAN Internal Medicine; ATTENDING PHYSICIAN Internal Medicine; CONSULT PHYSICIAN Internal Medicine Cardiovascular Disease; EMERGENCY PHYSICIAN Emergency Medicine; FAMILY PHYSICIAN Family Medicine
PROC: 5A2204Z Restoration of Cardiac Rhythm, Single (ICD-10-PCS; 2025-09-01)
DX: I48.0 Paroxysmal atrial fibrillation (principal); Q26.1 Persistent left superior vena cava; Q60.0 Renal agenesis, unilateral; I48.92 Unspecified atrial flutter; I73.00 Raynaud's syndrome without gangrene; I47.19 Other supraventricular tachycardia; Q76.1 Klippel-Feil syndrome; Z85.46 Personal history of malignant neoplasm of prostate; Z79.899 Other long term (current) drug therapy; Z79.01 Long term (current) use of anticoagulants
CPT/HCPCS: 71046; 80048; 80053; 83735; 84443; 84484; 85025; 85027; 85610; 85730; 86803; 92960; 93005; 93306; 99285

== ENCOUNTER → 2025-09-22 07:26 | Outpatient (REF) | payer MEDICARE, OTHER, SELFPAY | LOC: HWRCS 07:26 | PROVIDERS: ATTENDING PHYSICIAN Physician Assistant; FAMILY PHYSICIAN Family Medicine | DX: I48.0 Paroxysmal atrial fibrillation (principal); I47.19 Other supraventricular tachycardia; Z87.74 Personal history of (corrected) congenital malformations of heart and circulatory system; R06.02 Shortness of breath; R07.89 Other chest pain | CPT/HCPCS: 78452; 93017; A9500; J2785 ==